=== PATIENT | female | born 1960 | race Hispanic/Latino ===

== ENCOUNTER 2017-04-22 23:07 | Inpatient (IN) | payer MEDICAID ==
[2017-04-22] MEDS ORDERED: ATROVENT IH ONE (23:14)
[2017-04-22] MEDS ORDERED: PROVENTIL IH ONE (23:14)
[2017-04-22] MEDS ORDERED: MAGNESIUM SULFATE 2GM/50ML 2 GM/50 ML BAG IV ONE (23:20)
--- NOTE | 2017-04-22 23:25 | Emergency Department Report ---
HPI - General Chief Complaint: Dyspnea/Respdistress Time Seen by Provider: 04/22/17 23:13 - HPI HPI: This is a 56-year-old female presents to the emergency department by EMS from home and respiratory distress. She was found to have a pulse ox of 77 % on oxygen supplementation via nasal cannula. She was placed on a nonrebreather and it went up into the 80s. EMS was unable to establish an IV and therefore no medications were given. She has a history of COPD and is on 4- 5 L of oxygen at home via nasal cannula. She also has a history of hepatitis C. She says that she has had to be intubated in the past secondary to her COPD and/or respiratory issues. She is a former smoker. No recent travel or sick contacts at home. ED Past Medical Hx - Past Medical History Previous Medical History?: Yes Hx GERD: Yes Hx COPD: Yes Additional medical history: has been intubated beforem - Surgical History Past Surgical History?: No - Social History Smoking Status: Never Smoker Substance Use Type: None - Medications Home Medications: Home Medications Medication Instructions Recorded Confirmed Last Taken Type Ipratropium [Atrovent NEB] 0.5 mg IH Q4HR 30 Days 07/25/16 04/23/17 Unknown Rx ALBUTEROL Inhaler [Proair] 2 puff IH QID PRN 04/23/17 04/23/17 Unknown History Budesoni/Formotero 160-4.5(Nf) 2 puff IH BID 04/23/17 04/23/17 Unknown History [Symbicort 160-4.5 (Nf)] Tizanidine HCl [Zanaflex] 4 mg PO TID PRN 04/23/17 04/23/17 Unknown History Ursodiol (Nf) [Actigall (Nf)] 300 mg PO BID 04/23/17 04/23/17 Unknown History ED Review of Systems ROS: Stated complaint: ELI Other details as noted in HPI Comment: All other systems reviewed and negative Constitutional: denies: chills, fever Eyes: denies: eye pain, eye discharge, vision change ENT: denies: ear pain, throat pain Respiratory: cough, shortness of breath, wheezing Cardiovascular: denies: chest pain, palpitations Gastrointestinal: denies: abdominal pain, nausea, diarrhea Genitourinary: denies: urgency, dysuria, discharge Musculoskeletal: denies: back pain, joint swelling, arthralgia Skin: denies: rash, lesions Neurological: denies: headache, weakness, paresthesias Physical Exam - Physical Exam Vital Signs: Vital Signs 04/22/17 23:08 Pulse Rate 116 H Respiratory 32 H Rate Blood Pressure 151/83 O2 Sat by Pulse 83 L Oximetry Physical Exam: GENERAL: The patient is ill-appearing. HENT: Normocephalic. Atraumatic. Patient has moist mucous membranes. EYES: Extraocular motions are intact. Pupils equal reactive to light bilaterally. NECK: Supple. Trachea is midline. CHEST/LUNGS: There is mild wheezing throughout the chest. There is tachypnea and supraclavicular accessory muscle use. There is conversational dyspnea. There is respiratory distress noted. HEART/CARDIOVASCULAR: Regular. There is mild tachycardia. There is no gallop rub or murmur. ABDOMEN: Abdomen is soft, nontender. Patient has normal bowel sounds. There is no abdominal distention. SKIN: Skin is warm and dry. NEURO: The patient is awake, alert, and oriented. The patient is cooperative. The patient has no focal neurologic deficits. MUSCULOSKELETAL: There is no tenderness or deformity. Radial pulses +2 over 4 bilaterally. Cap refill less than 2 seconds. There is no evidence of acute injury. ED Course Vital Signs 04/22/17 23:08 Pulse Rate 116 H Respiratory 32 H Rate Blood Pressure 151/83 O2 Sat by Pulse 83 L Oximetry - Reevaluation(s) Reevaluation #1: Repeat ABG shows worsening respiratory acidosis with PCO2 of about 92, up from about 70. I spoke to the patient regarding the need for intubation before the patient undergoes CO2 narcosis and/or complete respiratory failure. However at this moment the patient is AAO 3, easily arousable and answers questions appropriately and refusing intubation. 04/23/17 01:15 04/23/17 02:05 As expected, the patient has become more sedated secondary to her CO2 narcosis. She is showing some hypoxia despite being on high O2 Bipap. The patient also eventually appeared to agree to intubation as still felt uncomfortable from her SOB and nodded in agreement to my suggestion / request to intubate and this was witnessed by the charge nurse Bryon and her boyfriend Rome. The patient no longer displays any decision making capacity as well. The patient was intubated without any obvious complication. - ABG Interpretation Ph: 7.312 PCO2: 72 PO2: 154 Bicarbonate: 36 Interpretation: respiratory acidosis - EJ/Peripheral Line Arm L Time Out Performed: Yes Indications: other (20-gauge angiocatheter necessary for CT angiography) Skin Cleansed in Sterile Fashion: Yes Size: 20 Dressing Placed: Tegaderm, tape Patient Tolerated Procedure: well Additional Comments: Ultrasound used. - Intubation Time Out Performed: Yes Sedative: Ketamine Mg Given: 50 Paralytic: Rocuronium Mg Given: 50 Laryngoscope: other (glydescope) ET Tube Size: 7.5 Tube Secured Depth (cm): 22 Tube Secured Location: lips Tube Placement Confirmation: visualized tube passing t, equal breath sounds bilat, confirmation by capnometr Patient Tolerated Procedure: well Intubation Complications: none ED Medical Decision Making - Lab Data Result diagrams: 04/22/17 23:13 04/22/17 23:13 - EKG Data -: EKG Interpreted by Me EKG shows normal: sinus rhythm, axis (borderline right axis deviation), intervals, QRS complexes (Q waves to the septal leads), ST-T waves (T-wave inversions to the high lateral leads) Rate: normal - EKG Data When compared to previous EKG there are: changes noted (new T-wave inversions to the lateral leads) Interpretation: other (sinus rhythm, normal rate, borderline right axis deviation, Q waves to the septal leads, T-wave inversion to the high lateral leads) - Radiology Data Radiology results: image reviewed interpreted by me: Chest x-ray shows some signs of interstitial lung disease, hyperinflation of the diaphragms. No obvious pneumonia. No pleural effusions. - Medical Decision Making 56-year-old female presents with what appears to be an exacerbation of COPD. She came in and some respiratory distress and required a BiPAP. ABG showed respiratory acidosis. She was on the BiPAP for about one hour when a repeat blood gas was done that showed worsening of her respiratory acidosis. At first the patient did not want intubation but she began having CO2 narcosis, became uncomfortable with her breathing and wanted sedation for all of the lab draws and IV placements and eventually agreed to intubation, which was necessary anyways. Her blood gas has improved while on mechanical ventilation and intubation. She has an elevated d-dimer but getting 20-gauge Angiocath placement appropriate for a CT angiography was very difficult. She may have a perfusion only study but a dose of Lovenox was given an internal medicine will decide how they would like to proceed to rule out a pulmonary embolism. She will be admitted to the hospital/ICU for further evaluation and treatment and has been accepted for admission by the hospitalist, Dr. Thayer. - Differential Diagnosis COPD, pneumonia, PE, OH Critical Care Time: Yes Critical care time in (mins) excluding proc time.: 35 Critical care attestation.: If time is entered above; I have spent that time in minutes in the direct care of this critically ill patient, excluding procedure time. Critical care time was spent on this patient during her initial evaluation, multiple re-evaluations , titration of BiPAP and mechanical ventilation, ordering an interpretation of labs and imaging, discussion with the patient and boyfriend. This is not include the time spent for the intubation and placing a peripheral IV. ED Disposition Clinical Impression: Hypoxia, Shortness of breath, COPD exacerbation, Respiratory acidosis Acute respiratory failure Qualifiers: Respiratory failure complication: hypoxia and hypercapnia Qualified Code(s): J96.01 - Acute respiratory failure with hypoxia; J96.02 - Acute respiratory failure with hypercapnia Disposition: -09 OP ADMIT IP TO THIS HOSP Is pt being admited?: Yes Condition: Serious Instructions: Chronic Obstructive Pulmonary Disease (ED) Referrals: PRIMARY CAREMD [Primary Care Provider] - 3-5 Days Time of Disposition: 06:17
[2017-04-22 23:45] LABS: ISTAT Base Excess 11; ISTAT HCO3 36.9; ISTAT PCO2 72.9 (35-45); ISTAT PH 7.312 (7.35-7.45); ISTAT PO2 154 (80-105); ISTAT SO2 99; ISTAT TCO2 39
[2017-04-22 23:49] LABS: Basophils % (Auto) 0.1 % (0.0-1.8); Eosinophils % (Auto) 0.2 % (0.0-4.3); Hematocrit 46.4 % (30.3-42.9); Hemoglobin 14.7 gm/dl (10.1-14.3); Mean Corpuscular HGB Conc 32 % (30-34); Mean Corpuscular Hemoglobin 30 pg (28-32); Mean Corpuscular Volume 95 fl (79-97); Platelet Count 261 K/mm3 (140-440); Red Blood Count 4.89 M/mm3 (3.65-5.03); White Blood Count 16.7 K/mm3 (4.5-11.0)
[2017-04-22 23:54] LABS: Blood Urea Nitrogen 12 mg/dL (7-17); Calcium 9.3 mg/dL (8.4-10.2); Carbon Dioxide 32 mmol/L (22-30); Chloride 99.1 mmol/L (98-107); Glucose 124 mg/dL (65-100); Sodium 145 mmol/L (137-145)
[2017-04-23 00:10] LABS: Anion Gap 19 mmol/L; Potassium 4.7 mmol/L (3.6-5.0)
--- NOTE | 2017-04-23 01:10 | XRay Report ---
FINAL REPORT PROCEDURE: XR CHEST 1V AP TECHNIQUE: Chest radiograph anteroposterior view. CPT 43636 HISTORY: Dyspnea COMPARISON: 07/22/2016 FINDINGS: Heart: Normal. Mediastinum/Vessels: Normal. Lungs/Pleural space: There is advanced COPD. There are fibrotic changes bilaterally. There is pleural thickening at the lung bases. There are no acute infiltrates. There are no pneumothoraces. Bony thorax: No acute osseous abnormality. Life support devices: None. IMPRESSION: There are chronic fibrotic changes. There are no acute infiltrates..
[2017-04-23 01:25] LABS: ISTAT Base Excess 11; ISTAT HCO3 38.6; ISTAT PCO2 91.5 (35-45); ISTAT PH 7.233 (7.35-7.45); ISTAT PO2 74 (80-105); ISTAT SO2 90; ISTAT TCO2 41
[2017-04-23 01:47] LABS: Bacteria,Urine 1+ /HPF (Negative); Bilirubin,Urine NEG (Negative); Blood,Urine NEG (Negative); Ketones,Urine 20 mg/dL (Negative); Leukocyte Esterase,Urine SM (Negative); Mucus,Urine FEW /HPF; Nitrite,Urine NEG (Negative); Urobilinogen,Urine < 2.0 mg/dL (<2.0)
[2017-04-23] MEDS ORDERED: KETALAR IV ONE ×3 (01:54→06:00)
[2017-04-23] MEDS ORDERED: ZEMURON IV ONE ×2 (01:54→02:01)
[2017-04-23] MEDS ORDERED: KETALAR ONE (02:01)
[2017-04-23] MEDS ORDERED: VERSED IV ONE (02:01)
[2017-04-23] MEDS ORDERED: ARTIFICIAL TEARS OPHTH OINT OU PRN ×2 (02:08→03:00)
[2017-04-23] MEDS ORDERED: VASELINE LIP THERAPY TP PRN ×2 (02:08→03:00)
[2017-04-23] MEDS ORDERED: NACL 0.9% 500 ML IV SCH (03:00)
[2017-04-23] MEDS: MIDAZOLAM 100 MG in NACL 0.9% 80 ML IV SCH (03:15)
[2017-04-23 04:11] LABS: ISTAT Base Excess 12; ISTAT HCO3 35.9; ISTAT PCO2 53.2 (35-45); ISTAT PH 7.437 (7.35-7.45); ISTAT PO2 97 (80-105); ISTAT SO2 98; ISTAT TCO2 38
[2017-04-23] MEDS: fentaNYL DRIP Premix 2,000 MCG/100 ML BAG IV SCH ×2 (04:37→19:26)
[2017-04-23] MEDS ORDERED: ROCEPHIN/NS 1 GM/50 ML 1 GM/50 ML BAG IV ONE (05:24)
[2017-04-23] MEDS ORDERED: LOVENOX SUB-Q ONE (05:33)
--- NOTE | 2017-04-23 05:59 | History and Physical Report ---
History of Present Illness Date of examination: 04/23/17 History of present illness: 56-year-old woman with a history of COPD, hepatitis C approximately emergency room for shortness of breath. She was found to be in respiratory distress. Patient had saturation of 77%. She was started on BiPAP, her carbon dioxide increased and she became sedated. The patient was subsequently intubated. CAT scan of the chest was was not done because of poor IV access, her d-dimer was elevated. Patient is sedated, unable to obtain review of systems. Old chart was reviewed PAST MEDICAL HISTORY:COPD, hepatitis C PAST SURGICAL HISTORY: None SOCIAL HISTORY: Previous tobacco, crack, no alcohol, current usage unknown FAMILY HISTORY: Hypertension Medications and Allergies Allergies Allergy/AdvReac Type Severity Reaction Status Date / Time No Known Allergies Allergy Verified 07/22/16 22:21 Home Medications Medication Instructions Recorded Confirmed Last Taken Type Ipratropium [Atrovent NEB] 0.5 mg IH Q4HR 30 Days 07/25/16 04/23/17 Unknown Rx ALBUTEROL Inhaler [ProAir HFA 2 puff IH QID PRN #1 unit 04/27/17 04/23/17 Unknown Rx Inhaler] Acetaminophen [Acetaminophen TAB] 325 mg PO Q4H PRN #30 tablet 04/27/17 Unknown Rx Arformoterol Nebu [Brovana Nebu] 15 mcg IH Q12HRT #30 day 04/27/17 Unknown Rx Azithromycin [Zithromax Z-KAYLA] 1 dose PO DAILY #1 pack 04/27/17 Unknown Rx Budesoni/Formotero 160-4.5(Nf) 2 puff IH BID #30 04/27/17 04/23/17 Unknown Rx [Symbicort 160-4.5 (Nf)] Famotidine [Pepcid] 20 mg PO BID #60 tablet 04/27/17 Unknown Rx Ursodiol (Nf) [Actigall (Nf)] 300 mg PO BID #30 day 04/27/17 04/23/17 Unknown Rx methylPREDNISolone [Medrol Dose 1 dose PO DAILY #1 pack 04/27/17 Unknown Rx Kayla] Active Meds: Active Medications Hydrophilic Ointment (Vaseline Lip Therapy) 1 applic TP Q2HR PRN PRN Reason: Dry Lips Hydrophilic Ointment (Vaseline Lip Therapy) 1 applic TP Q2HR PRN PRN Reason: Dry Lips Fentanyl Citrate (Fentanyl Drip Premix) 2,000 mcg in 100 mls @ 2.495 mls/hr IV TITR MELISSA; 1 MCG/KG/HR PRN Reason: Protocol Last Titration: 04/23/17 05:00 Dose: 2 mcg/kg/hr, 4.99 mls/hr Midazolam HCl 100 mg/ Sodium (Chloride) 100 mls @ 2 mls/hr IV TITR MELISSA; 2 MG/HR PRN Reason: Protocol Last Titration: 04/23/17 04:45 Dose: 4 mg/hr, 4 mls/hr Ketamine HCl (Ketalar) 100 mg IV ONCE ONE Stop: 04/23/17 06:01 Multi-Ingred Cream/Lotion/Oil/Oint (Artificial Tears Ophth Oint) 1 applic OU Q4HR PRN PRN Reason: Dry Eye(s) Multi-Ingred Cream/Lotion/Oil/Oint (Artificial Tears Ophth Oint) 1 applic OU Q4HR PRN PRN Reason: Dry Eye(s) Sodium Chloride (Nacl 0.9% 500 Ml) 1 ml IV DIRECT MELISSA Exam - Physical Exam Narrative exam: Gen. appearance: Patient lying in bed in no acute distress, intubated HEENT: Normocephalic/atraumatic, pupils equal round reactive to light, unable to do extraocular movement, no scleral icterus, no JVD or thyromegaly or nodule , neck is supple, mucous membrane moist, unable to examine oral cavity Heart: S1-S2, regular rate and rhythm Lungs: Wheezing anteriorly bilateral breathing comfortable Abdomen: Positive bowel sounds, nontender, nondistended, no organomegaly Extremities: No edema, cyanosis, clubbing Neuro:: Patient intubated, sedated Skin: No rash, nodules, warm dry - Constitutional Vitals: Temp Pulse Resp BP Pulse Ox 96 H 18 118/81 98 04/23/17 05:00 04/23/17 05:00 04/23/17 05:00 04/23/17 05:00 Results - Labs CBC & Chem 7: 04/26/17 06:48 04/26/17 06:48 Labs: Abnormal lab results 04/22/17 04/22/17 04/22/17 Range/Units 23:13 23:13 23:13 WBC 16.7 H (4.5-11.0) K/mm3 Hgb 14.7 H (10.1-14.3) gm/dl Hct 46.4 H (30.3-42.9) % Lymph % (Auto) 6.5 L (13.4-35.0) % [place] % (Auto) 9.9 H (0.0-7.3) % Lymph # 1.1 L (1.2-5.4) K/mm3 [place] # 1.6 H (0.0-0.8) K/mm3 Seg Neutrophils % 83.3 H (40.0-70.0) % Seg Neutrophils # 13.9 H (1.8-7.7) K/mm3 D-Dimer 1379.86 H (0-234) ng/mlDDU POC ABG pH (7.35-7.45) POC ABG pCO2 (35-45) POC ABG pO2 (80-105) Carbon Dioxide 32 H (22-30) mmol/L Creatinine 0.5 L (0.7-1.2) mg/dL Glucose 124 H (65-100) mg/dL NT-Pro-B Natriuret Pep (0-900) pg/mL Urine WBC (Auto) (0.0-6.0) /HPF 04/22/17 04/22/17 04/23/17 Range/Units 23:14 23:44 01:10 WBC (4.5-11.0) K/mm3 Hgb (10.1-14.3) gm/dl Hct (30.3-42.9) % Lymph % (Auto) (13.4-35.0) % [place] % (Auto) (0.0-7.3) % Lymph # (1.2-5.4) K/mm3 [place] # (0.0-0.8) K/mm3 Seg Neutrophils % (40.0-70.0) % Seg Neutrophils # (1.8-7.7) K/mm3 D-Dimer (0-234) ng/mlDDU POC ABG pH 7.312 L (7.35-7.45) POC ABG pCO2 72.9 H (35-45) POC ABG pO2 154 H (80-105) Carbon Dioxide (22-30) mmol/L Creatinine (0.7-1.2) mg/dL Glucose (65-100) mg/dL NT-Pro-B Natriuret Pep 2918 H (0-900) pg/mL Urine WBC (Auto) 55.0 H (0.0-6.0) /HPF 04/23/17 04/23/17 Range/Units 01:12 04:10 WBC (4.5-11.0) K/mm3 Hgb (10.1-14.3) gm/dl Hct (30.3-42.9) % Lymph % (Auto) (13.4-35.0) % [place] % (Auto) (0.0-7.3) % Lymph # (1.2-5.4) K/mm3 [place] # (0.0-0.8) K/mm3 Seg Neutrophils % (40.0-70.0) % Seg Neutrophils # (1.8-7.7) K/mm3 D-Dimer (0-234) ng/mlDDU POC ABG pH 7.233 L (7.35-7.45) POC ABG pCO2 91.5 H 53.2 H (35-45) POC ABG pO2 74 L (80-105) Carbon Dioxide (22-30) mmol/L Creatinine (0.7-1.2) mg/dL Glucose (65-100) mg/dL NT-Pro-B Natriuret Pep (0-900) pg/mL Urine WBC (Auto) (0.0-6.0) /HPF - Imaging and Cardiology EKG: image reviewed Chest x-ray: image reviewed Assessment and Plan Assessment Acute Respiratory failure, hypoxic COPD exacerbation, acute Elevated d-dimer, rule out pulmonary emboli UTI Hepatitis C Plan Continue IV sedation, start high dose steroids, nebulizer treatment a Consult critical care, status post a full dose of Lovenox. Obtain PICC line placement for CAT scan of the chest If CT negative , please start prophylactic Lovenox dose Check cardiac enzymes, start IV Levaquin, iv fluid
[2017-04-23] MEDS ORDERED: ZOFRAN IV PRN (06:01)
[2017-04-23] MEDS ORDERED: TYLENOL PR PRN (06:01)
[2017-04-23] MEDS ORDERED: TYLENOL PO PRN (06:01)
[2017-04-23 07:14] LABS: Creatine Kinase MB 5.9 ng/mL (0.0-4.0)
[2017-04-23 07:16] LABS: Creatine Kinase 83 units/L (30-135)
--- NOTE | 2017-04-23 07:47 | Progress Note ---
<ANTON CROUCH - Last Filed: 04/23/17 15:00> Assessment and Plan Assessment and plan: Patient is a 56-year-old woman with a history of COPD, hepatitis C presents to the emergency room for shortness of breath. She was found to be in respiratory distress. Patient had saturation of 77%. She was started on BiPAP, her carbon dioxide increased and she became sedated. The patient was subsequently intubated. Acute respiratory failure with hypoxia Patient currently intubated. No acute respiratory distress noted. Aggressive Nebulizers/Inhalers ABG when necessary Oxygen supplement Supportive care Sepsis secondary UTI Blood cultures collected prior to antibiotic and culture. Follow blood cultures. Initiated empiric treatment IV Levaquin IV fluid hydration Supportive care Acute exacerbation of chronic obstructive pulmonary disease (COPD), Continue on Duoneb every 6 hours Wean IV steroid Solumedrol 125mg every 6 hours Continue on empiric treatment of IV Levaquin. Oxygen as necessary Urinary Tract Infection IV fluid hydration Initiated empiric treatment IV Levaquin Supportive care Hepatitis C Stable follow up with GI as outpatient Elevated D-fabián CTA no evidence of PE VL LE Doppler ordered to rule out LE DVT DVT/Prophylaxis Lovenox History Interval history: Patient intubated, no overnight issue Hospitalist Physical - Constitutional Vitals: Temp Pulse Resp BP Pulse Ox 104 H 18 117/82 98 04/23/17 07:37 04/23/17 06:45 04/23/17 07:37 04/23/17 07:37 General appearance: Present: no acute distress, other (intubated ) - EENT Eyes: Present: PERRL ENT: hearing intact - Neck Neck: Present: supple - Respiratory Respiratory effort: normal Respiratory: bilateral: wheezing - Cardiovascular Rhythm: regular Heart Sounds: Present: S1 & S2 - Extremities Extremities: no ischemia Peripheral Pulses: within normal limits - Abdominal General gastrointestinal: soft, non-tender - Integumentary Integumentary: Present: clear, warm, dry - Psychiatric Psychiatric: appropriate mood/affect - Neurologic Neurologic: CNII-XII intact - Allied Health Allied health notes reviewed: nursing Results - Labs CBC & Chem 7: 04/22/17 23:13 04/22/17 23:13 Labs: Laboratory Last Values WBC 16.7 K/mm3 (4.5-11.0) H 04/22/17 23:13 RBC 4.89 M/mm3 (3.65-5.03) 04/22/17 23:13 Hgb 14.7 gm/dl (10.1-14.3) H 04/22/17 23:13 Hct 46.4 % (30.3-42.9) H 04/22/17 23:13 MCV 95 fl (79-97) 04/22/17 23:13 MCH 30 pg (28-32) 04/22/17 23:13 MCHC 32 % (30-34) 04/22/17 23:13 RDW 15.0 % (13.2-15.2) 04/22/17 23:13 Plt Count 261 K/mm3 (140-440) 04/22/17 23:13 Lymph % (Auto) 6.5 % (13.4-35.0) L 04/22/17 23:13 [place] % (Auto) 9.9 % (0.0-7.3) H 04/22/17 23:13 Eos % (Auto) 0.2 % (0.0-4.3) 04/22/17 23:13 Baso % (Auto) 0.1 % (0.0-1.8) 04/22/17 23:13 Lymph # 1.1 K/mm3 (1.2-5.4) L 04/22/17 23:13 [place] # 1.6 K/mm3 (0.0-0.8) H 04/22/17 23:13 Eos # 0.0 K/mm3 (0.0-0.4) 04/22/17 23:13 Baso # 0.0 K/mm3 (0.0-0.1) 04/22/17 23:13 Seg Neutrophils % 83.3 % (40.0-70.0) H 04/22/17 23:13 Seg Neutrophils # 13.9 K/mm3 (1.8-7.7) H 04/22/17 23:13 D-Dimer 1379.86 ng/mlDDU (0-234) H 04/22/17 23:13 POC ABG pH 7.437 (7.35-7.45) 04/23/17 04:10 POC ABG pCO2 53.2 (35-45) H 04/23/17 04:10 POC ABG pO2 97 (80-105) 04/23/17 04:10 POC ABG HCO3 35.9 04/23/17 04:10 POC ABG Total CO2 38 04/23/17 04:10 POC ABG O2 Sat 98 04/23/17 04:10 POC ABG Base Excess 12 04/23/17 04:10 FiO2 50 % 04/23/17 04:10 Sodium 145 mmol/L (137-145) 04/22/17 23:13 Potassium 4.7 mmol/L (3.6-5.0) 04/22/17 23:13 Chloride 99.1 mmol/L (98-107) 04/22/17 23:13 Carbon Dioxide 32 mmol/L (22-30) H 04/22/17 23:13 Anion Gap 19 mmol/L 04/22/17 23:13 BUN 12 mg/dL (7-17) 04/22/17 23:13 Creatinine 0.5 mg/dL (0.7-1.2) L 04/22/17 23:13 Estimated GFR > 60 ml/min 04/22/17 23:13 BUN/Creatinine Ratio 24.00 % 04/22/17 23:13 Glucose 124 mg/dL (65-100) H 04/22/17 23:13 Calcium 9.3 mg/dL (8.4-10.2) 04/22/17 23:13 Magnesium 1.90 mg/dL (1.7-2.3) 04/22/17 23:13 Total Creatine Kinase 83 units/L (30-135) 04/23/17 06:20 CK-MB (CK-2) 5.9 ng/mL (0.0-4.0) H 04/23/17 06:20 CK-MB (CK-2) Rel Index 7.1 (0-4) H 04/23/17 06:20 Troponin T < 0.010 ng/mL (0.00-0.029) 04/23/17 06:20 NT-Pro-B Natriuret Pep 2918 pg/mL (0-900) H 04/22/17 23:14 Urine Color Yellow (Yellow) 04/23/17 01:10 Urine Turbidity Clear (Clear) 04/23/17 01:10 Urine pH 5.0 (5.0-7.0) 04/23/17 01:10 Ur Specific [place] 1.023 (1.003-1.030) 04/23/17 01:10 Urine Protein 100 mg/dl mg/dL (Negative) 04/23/17 01:10 Urine Glucose (UA) Neg mg/dL (Negative) 04/23/17 01:10 Urine Ketones 20 mg/dL (Negative) 04/23/17 01:10 Urine Blood Neg (Negative) 04/23/17 01:10 Urine Nitrite Neg (Negative) 04/23/17 01:10 Urine Bilirubin Neg (Negative) 04/23/17 01:10 Urine Urobilinogen < 2.0 mg/dL (<2.0) 04/23/17 01:10 Ur Leukocyte Esterase Sm (Negative) 04/23/17 01:10 Urine WBC (Auto) 55.0 /HPF (0.0-6.0) H 04/23/17 01:10 Urine RBC (Auto) 8.0 /HPF (0.0-6.0) 04/23/17 01:10 U Epithel Cells (Auto) 1.0 /HPF (0-13.0) 04/23/17 01:10 Urine Bacteria (Auto) 1+ /HPF (Negative) 04/23/17 01:10 Amorphous Crystals 1+ 04/23/17 01:10 Hyaline Casts 17 /LPF 04/23/17 01:10 Urine Mucus Few /HPF 04/23/17 01:10 <KEATON BASILIO - Last Filed: 04/23/17 19:39> Assessment and Plan Assessment and plan: I saw and evaluated the patient. I agree with the findings and the plan of care as documented in the Nurse Practitioner's~note, with the following corrections and additions. Hospitalist Physical - Constitutional Vitals: Temp Pulse Resp BP Pulse Ox 98.7 F 98 H 18 114/83 96 04/23/17 18:00 04/23/17 18:00 04/23/17 18:00 04/23/17 18:00 04/23/17 18:00 Results - Labs CBC & Chem 7: 04/22/17 23:13 04/22/17 23:13 Labs: Laboratory Last Values WBC 16.7 K/mm3 (4.5-11.0) H 04/22/17 23:13 RBC 4.89 M/mm3 (3.65-5.03) 04/22/17 23:13 Hgb 14.7 gm/dl (10.1-14.3) H 04/22/17 23:13 Hct 46.4 % (30.3-42.9) H 04/22/17 23:13 MCV 95 fl (79-97) 04/22/17 23:13 MCH 30 pg (28-32) 04/22/17 23:13 MCHC 32 % (30-34) 04/22/17 23:13 RDW 15.0 % (13.2-15.2) 04/22/17 23:13 Plt Count 261 K/mm3 (140-440) 04/22/17 23:13 Lymph % (Auto) 6.5 % (13.4-35.0) L 04/22/17 23:13 [place] % (Auto) 9.9 % (0.0-7.3) H 04/22/17 23:13 Eos % (Auto) 0.2 % (0.0-4.3) 04/22/17 23:13 Baso % (Auto) 0.1 % (0.0-1.8) 04/22/17 23:13 Lymph # 1.1 K/mm3 (1.2-5.4) L 04/22/17 23:13 [place] # 1.6 K/mm3 (0.0-0.8) H 04/22/17 23:13 Eos # 0.0 K/mm3 (0.0-0.4) 04/22/17 23:13 Baso # 0.0 K/mm3 (0.0-0.1) 04/22/17 23:13 Seg Neutrophils % 83.3 % (40.0-70.0) H 04/22/17 23:13 Seg Neutrophils # 13.9 K/mm3 (1.8-7.7) H 04/22/17 23:13 D-Dimer 1379.86 ng/mlDDU (0-234) H 04/22/17 23:13 POC ABG pH 7.437 (7.35-7.45) 04/23/17 04:10 POC ABG pCO2 53.2 (35-45) H 04/23/17 04:10 POC ABG pO2 97 (80-105) 04/23/17 04:10 POC ABG HCO3 35.9 04/23/17 04:10 POC ABG Total CO2 38 04/23/17 04:10 POC ABG O2 Sat 98 04/23/17 04:10 POC ABG Base Excess 12 04/23/17 04:10 FiO2 50 % 04/23/17 04:10 Sodium 145 mmol/L (137-145) 04/22/17 23:13 Potassium 4.7 mmol/L (3.6-5.0) 04/22/17 23:13 Chloride 99.1 mmol/L (98-107) 04/22/17 23:13 Carbon Dioxide 32 mmol/L (22-30) H 04/22/17 23:13 Anion Gap 19 mmol/L 04/22/17 23:13 BUN 12 mg/dL (7-17) 04/22/17 23:13 Creatinine 0.5 mg/dL (0.7-1.2) L 04/22/17 23:13 Estimated GFR > 60 ml/min 04/22/17 23:13 BUN/Creatinine Ratio 24.00 % 04/22/17 23:13 Glucose 124 mg/dL (65-100) H 04/22/17 23:13 Calcium 9.3 mg/dL (8.4-10.2) 04/22/17 23:13 Magnesium 1.90 mg/dL (1.7-2.3) 04/22/17 23:13 Total Creatine Kinase 46 units/L (30-135) 04/23/17 12:37 CK-MB (CK-2) 3.9 ng/mL (0.0-4.0) 04/23/17 12:37 CK-MB (CK-2) Rel Index 8.4 (0-4) H 04/23/17 12:37 Troponin T < 0.010 ng/mL (0.00-0.029) 04/23/17 12:37 NT-Pro-B Natriuret Pep 2918 pg/mL (0-900) H 04/22/17 23:14 Urine Color Yellow (Yellow) 04/23/17 01:10 Urine Turbidity Clear (Clear) 04/23/17 01:10 Urine pH 5.0 (5.0-7.0) 04/23/17 01:10 Ur Specific [place] 1.023 (1.003-1.030) 04/23/17 01:10 Urine Protein 100 mg/dl mg/dL (Negative) 04/23/17 01:10 Urine Glucose (UA) Neg mg/dL (Negative) 04/23/17 01:10 Urine Ketones 20 mg/dL (Negative) 04/23/17 01:10 Urine Blood Neg (Negative) 04/23/17 01:10 Urine Nitrite Neg (Negative) 04/23/17 01:10 Urine Bilirubin Neg (Negative) 04/23/17 01:10 Urine Urobilinogen < 2.0 mg/dL (<2.0) 04/23/17 01:10 Ur Leukocyte Esterase Sm (Negative) 04/23/17 01:10 Urine WBC (Auto) 55.0 /HPF (0.0-6.0) H 04/23/17 01:10 Urine RBC (Auto) 8.0 /HPF (0.0-6.0) 04/23/17 01:10 U Epithel Cells (Auto) 1.0 /HPF (0-13.0) 04/23/17 01:10 Urine Bacteria (Auto) 1+ /HPF (Negative) 04/23/17 01:10 Amorphous Crystals 1+ 04/23/17 01:10 Hyaline Casts 17 /LPF 04/23/17 01:10 Urine Mucus Few /HPF 04/23/17 01:10
--- NOTE | 2017-04-23 08:18 | XRay Report ---
PORTABLE CHEST INDICATION: ET tube placement. COMPARISON: Yesterday. FINDINGS: Portable, frontal chest radiograph, 2:17 AM, 04/23/2017 demonstrates new endotracheal tube tip approximately 4 cm above the danny. Stable cardiomediastinal silhouette with extensive emphysematous changes/probable large bullae inferiorly while crowded/prominent bronchovascular markings noted in the upper to mid lung zones. Bilateral costophrenic angle blunting. EKG leads. Intact bones. CONCLUSION: Satisfactory interval intubation and stable extensive emphysematous changes inferiorly, as described. Thank you for the opportunity to participate in this patient's care.
[2017-04-23] MEDS ORDERED: LOVENOX SUB-Q SCH (10:00)
--- NOTE | 2017-04-23 11:11 | Consultation ---
History of Present Illness Consult date: 04/23/17 Requesting physician: JEISON TYSON Reason for consult: other (Acute on Chronic Hypercapnic Hypoxemic Respiratory Failure; Acute COPD exacerbation) History of present illness: PULMONARY/CCM CONSULT NOTE (Full dictation # [id number]) Please see dictated notes for full details Medications and Allergies Allergies Allergy/AdvReac Type Severity Reaction Status Date / Time No Known Allergies Allergy Verified 07/22/16 22:21 Home Medications Medication Instructions Recorded Confirmed Last Taken Type Ipratropium [Atrovent NEB] 0.5 mg IH Q4HR 30 Days 07/25/16 04/23/17 Unknown Rx ALBUTEROL Inhaler [Proair] 2 puff IH QID PRN 04/23/17 04/23/17 Unknown History Budesoni/Formotero 160-4.5(Nf) 2 puff IH BID 04/23/17 04/23/17 Unknown History [Symbicort 160-4.5 (Nf)] Tizanidine HCl [Zanaflex] 4 mg PO TID PRN 04/23/17 04/23/17 Unknown History Ursodiol (Nf) [Actigall (Nf)] 300 mg PO BID 04/23/17 04/23/17 Unknown History Active Meds: Active Medications Acetaminophen (Tylenol) 650 mg PO Q4H PRN PRN Reason: Pain MILD(1-3)/Fever >100.5/HILL Acetaminophen (Tylenol) 650 mg AR Q4H PRN PRN Reason: Pain MILD(1-3)/Fever >100.5/HILL Hydrophilic Ointment (Vaseline Lip Therapy) 1 applic TP Q2HR PRN PRN Reason: Dry Lips Fentanyl Citrate (Fentanyl Drip Premix) 2,000 mcg in 100 mls @ 2.495 mls/hr IV TITR MELISSA; 1 MCG/KG/HR PRN Reason: Protocol Last Titration: 04/23/17 05:00 Dose: 2 mcg/kg/hr, 4.99 mls/hr Midazolam HCl 100 mg/ Sodium (Chloride) 100 mls @ 2 mls/hr IV TITR MELISSA; 2 MG/HR PRN Reason: Protocol Last Titration: 04/23/17 10:32 Dose: 3 mg/hr, 3 mls/hr Sodium Chloride (Nacl 0.9% 1000 Ml) 1,000 mls @ 75 mls/hr IV DIRECT MELISSA Levofloxacin/Dextrose (Levaquin 500mg/100ml) 500 mg in 100 mls @ 100 mls/hr IV Q24HR MELISSA PRN Reason: Protocol Methylprednisolone Sodium Succinate (Solu-Medrol) 125 mg IV Q6H [facility] Multi-Ingred Cream/Lotion/Oil/Oint (Artificial Tears Ophth Oint) 1 applic OU Q4HR PRN PRN Reason: Dry Eye(s) Ondansetron HCl (Zofran) 4 mg IV Q8H PRN PRN Reason: N/V unrelieved by Reglan Sodium Chloride (Nacl 0.9% 500 Ml) 1 ml IV DIRECT [facility] Physical Examination Vital signs: Vital Signs Pulse Resp Pulse Ox 110 H 18 82 L 04/22/17 23:06 04/22/17 23:06 04/22/17 23:06 Results - Laboratory Findings CBC and BMP: 04/22/17 23:13 04/22/17 23:13 ABG POC ABG pH 7.437 (7.35-7.45) 04/23/17 04:10 POC ABG pCO2 53.2 (35-45) H 04/23/17 04:10 POC ABG pO2 97 (80-105) 04/23/17 04:10 POC ABG HCO3 35.9 04/23/17 04:10 POC ABG Total CO2 38 04/23/17 04:10 POC ABG O2 Sat 98 04/23/17 04:10 PT/INR, D-dimer D-Dimer 1379.86 ng/mlDDU (0-234) H 04/22/17 23:13 Abnormal lab findings: Abnormal Labs 04/23/17 06:20 CK-MB (CK-2) 5.9 H CK-MB (CK-2) Rel Index 7.1 H
[2017-04-23] MEDS: LEVAQUIN 500MG/100ML 500 MG/100 ML BAG IV SCH (12:13)
[2017-04-23 13:20] LABS: Creatine Kinase MB 3.9 ng/mL (0.0-4.0)
[2017-04-23 13:22] LABS: Creatine Kinase 46 units/L (30-135)
--- NOTE | 2017-04-23 13:56 | Cat Scan Report ---
CTA CHEST: History: Shortness of breath, evaluate for pulmonary embolus. Technique: Helical CT following IV contrast. Pulmonary embolus protocol. Sagittal and coronal reformatted images. Rotational MIP images. Findings: An endotracheal tube is in place. Contrast bolus is satisfactory. No pulmonary embolus is identified. There are severe emphysematous changes bilaterally. The lower lung zones are most affected. No obvious mass, infiltrate, pleural effusion or pneumothorax. Linear scarring in both upper lobes are noted. The thyroid gland, tracheobronchial tree, esophagus, heart, pericardium, mediastinal vessels, and bony thorax are unremarkable. Limited images of the upper abdomen demonstrate an 2.8 x 1.8 cm stone in the left renal pelvis. There is advanced left renal atrophy and mild left hydronephrosis. These findings are partially imaged. Impression: No pulmonary embolus is identified. Severe emphysema. Large left renal pelvis stone with mild left hydronephrosis. See above.
[2017-04-23] MEDS: NACL 0.9% 1000 ML 1,000 ML IV SCH (16:07)
[2017-04-23] MEDS ORDERED: PEPCID PO SCH (21:00)
[2017-04-23 22:25] LABS: C-Reactive Protein 5.1 mg/dL (0.00-1.30); Phosphorous 3.6 mg/dL (2.5-4.5)
--- NOTE | 2017-04-24 00:12 | XRay Report ---
FINAL REPORT EXAM: XR ABDOMEN 1V AP HISTORY: Confirm placement of Dobhoff tube COMPARISON: None available. FINDINGS: AP view of the upper abdomen obtained. Distal tip of feeding tube projects over the proximal to mid stomach. This could be advanced another 15 centimeters to be within the proximal duodenum. IMPRESSION: Distal tip of feeding tube projects over the proximal to mid stomach.
--- NOTE | 2017-04-24 03:25 | XRay Report ---
FINAL REPORT EXAM: XR ABDOMEN 1V AP HISTORY: Dobhoff readjusted COMPARISON: Plain films of the abdomen from yesterday. FINDINGS: AP view of the upper abdomen obtained. Distal tip of feeding tube is unchanged projecting over the proximal to mid stomach. There is radiopaque material within renal pelves bilaterally which may relate to IV contrast from CT enhanced study. Staghorn calculi could have a similar appearance. IMPRESSION: Distal tip of feeding tube is unchanged projecting over the proximal to mid stomach. Radiopaque structures within the bilateral renal pelves which could reflect staghorn calculi or contrast from CT enhanced study.
[2017-04-24 05:19] LABS: Basophils % (Auto) 0.6 % (0.0-1.8); Eosinophils % (Auto) 0.1 % (0.0-4.3); Hematocrit 42.6 % (30.3-42.9); Hemoglobin 14.1 gm/dl (10.1-14.3); Mean Corpuscular HGB Conc 33 % (30-34); Mean Corpuscular Hemoglobin 31 pg (28-32); Mean Corpuscular Volume 93 fl (79-97); Platelet Count 224 K/mm3 (140-440); Red Cell Distribution Width 15.4 % (13.2-15.2)
[2017-04-24] MEDS: NACL 0.9% 1000 ML 1,000 ML IV SCH ×2 (05:33→16:25)
[2017-04-24 05:44] LABS: ISTAT Base Excess 11; ISTAT HCO3 34.8; ISTAT PCO2 45.5 (35-45); ISTAT PH 7.491 (7.35-7.45); ISTAT PO2 65 (80-105); ISTAT SO2 94; ISTAT TCO2 36
[2017-04-24] MEDS: MIDAZOLAM 100 MG in NACL 0.9% 80 ML IV SCH (06:50)
--- NOTE | 2017-04-24 07:50 | Progress Note ---
<ANTON CROUCH - Last Filed: 04/24/17 12:23> Assessment and Plan Assessment and plan: Patient is a 56-year-old woman with a history of COPD, hepatitis C presents to the emergency room for shortness of breath. She was found to be in respiratory distress. Patient had saturation of 77%. She was started on BiPAP, her carbon dioxide increased and she became sedated. The patient was subsequently intubated. Acute respiratory failure with hypoxia Patient currently intubated and sedated. No acute respiratory distress noted. Aggressive Nebulizers/Inhalers ABG when necessary Oxygen supplement Supportive care Sepsis secondary UTI Blood cultures collected prior to antibiotic and culture. Follow blood cultures. Initiated empiric treatment IV Levaquin IV fluid hydration Supportive care Hydronephrosis CTA showed an 2.8x1.8cm stone in the left reneal pelvis Urology consulted Acute exacerbation of chronic obstructive pulmonary disease (COPD), Continue on Duoneb every 6 hours Wean IV steroid Solumedrol 125mg every 6 hours Continue on empiric treatment of IV Levaquin. Oxygen as necessary Urinary Tract Infection IV fluid hydration Initiated empiric treatment IV Levaquin Supportive care Hepatitis C Stable follow up with GI as outpatient Elevated D-fabián CTA no evidence of PE VL LE Doppler no evidence of DVT/SVT DVT/Prophylaxis Lovenox History Interval history: Patient intubated and sedated, no overnight issue Hospitalist Physical - Constitutional Vitals: Temp Pulse Resp BP Pulse Ox 98.2 F 77 18 141/76 99 04/24/17 03:39 04/24/17 06:40 04/24/17 06:40 04/24/17 06:40 04/24/17 06:40 General appearance: Present: no acute distress, other (intubated and sedated ) - EENT Eyes: Present: PERRL ENT: hearing intact - Neck Neck: Present: supple, rigidity - Respiratory Respiratory effort: normal Respiratory: bilateral: CTA - Cardiovascular Heart rate: 66 Rhythm: regular Heart Sounds: Present: S1 & S2 - Extremities Extremities: no ischemia Peripheral Pulses: within normal limits - Abdominal General gastrointestinal: soft, non-tender - Integumentary Integumentary: Present: clear, warm, dry - Psychiatric Psychiatric: appropriate mood/affect - Neurologic Neurologic: CNII-XII intact - Allied Health Allied health notes reviewed: nursing Results - Labs CBC & Chem 7: 04/24/17 05:01 04/24/17 06:53 Labs: Laboratory Last Values WBC 11.0 K/mm3 (4.5-11.0) 04/24/17 05:01 RBC 4.60 M/mm3 (3.65-5.03) 04/24/17 05:01 Hgb 14.1 gm/dl (10.1-14.3) 04/24/17 05:01 Hct 42.6 % (30.3-42.9) 04/24/17 05:01 MCV 93 fl (79-97) 04/24/17 05:01 MCH 31 pg (28-32) 04/24/17 05:01 MCHC 33 % (30-34) 04/24/17 05:01 RDW 15.4 % (13.2-15.2) H 04/24/17 05:01 Plt Count 224 K/mm3 (140-440) 04/24/17 05:01 Lymph % (Auto) 7.4 % (13.4-35.0) L 04/24/17 05:01 [place] % (Auto) 10.2 % (0.0-7.3) H 04/24/17 05:01 Eos % (Auto) 0.1 % (0.0-4.3) 04/24/17 05:01 Baso % (Auto) 0.6 % (0.0-1.8) 04/24/17 05:01 Lymph # 0.8 K/mm3 (1.2-5.4) L 04/24/17 05:01 [place] # 1.1 K/mm3 (0.0-0.8) H 04/24/17 05:01 Eos # 0.0 K/mm3 (0.0-0.4) 04/24/17 05:01 Baso # 0.1 K/mm3 (0.0-0.1) 04/24/17 05:01 Seg Neutrophils % 81.7 % (40.0-70.0) H 04/24/17 05:01 Seg Neutrophils # 9.0 K/mm3 (1.8-7.7) H 04/24/17 05:01 D-Dimer 1379.86 ng/mlDDU (0-234) H 04/22/17 23:13 POC ABG pH 7.491 (7.35-7.45) H 04/24/17 05:37 POC ABG pCO2 45.5 (35-45) H 04/24/17 05:37 POC ABG pO2 65 (80-105) L 04/24/17 05:37 POC ABG HCO3 34.8 04/24/17 05:37 POC ABG Total CO2 36 04/24/17 05:37 POC ABG O2 Sat 94 04/24/17 05:37 POC ABG Base Excess 11 04/24/17 05:37 FiO2 40 % 04/24/17 05:37 Sodium 145 mmol/L (137-145) 04/22/17 23:13 Potassium 4.7 mmol/L (3.6-5.0) 04/22/17 23:13 Chloride 99.1 mmol/L (98-107) 04/22/17 23:13 Carbon Dioxide 32 mmol/L (22-30) H 04/22/17 23:13 Anion Gap 19 mmol/L 04/22/17 23:13 BUN 12 mg/dL (7-17) 04/22/17 23:13 Creatinine 0.5 mg/dL (0.7-1.2) L 04/22/17 23:13 Estimated GFR > 60 ml/min 04/22/17 23:13 BUN/Creatinine Ratio 24.00 % 04/22/17 23:13 Glucose 124 mg/dL (65-100) H 04/22/17 23:13 Lactic Acid 1.40 mmol/L (0.7-2.0) 04/23/17 21:42 Calcium 9.3 mg/dL (8.4-10.2) 04/22/17 23:13 Phosphorus 3.60 mg/dL (2.5-4.5) 04/23/17 21:42 Magnesium 1.90 mg/dL (1.7-2.3) 04/22/17 23:13 Total Creatine Kinase 46 units/L (30-135) 04/23/17 12:37 CK-MB (CK-2) 3.9 ng/mL (0.0-4.0) 04/23/17 12:37 CK-MB (CK-2) Rel Index 8.4 (0-4) H 04/23/17 12:37 Troponin T < 0.010 ng/mL (0.00-0.029) 04/23/17 12:37 C-Reactive Protein 5.10 mg/dL (0.00-1.30) H 04/23/17 21:42 NT-Pro-B Natriuret Pep 2918 pg/mL (0-900) H 04/22/17 23:14 Urine Color Yellow (Yellow) 04/23/17 01:10 Urine Turbidity Clear (Clear) 04/23/17 01:10 Urine pH 5.0 (5.0-7.0) 04/23/17 01:10 Ur Specific [place] 1.023 (1.003-1.030) 04/23/17 01:10 Urine Protein 100 mg/dl mg/dL (Negative) 04/23/17 01:10 Urine Glucose (UA) Neg mg/dL (Negative) 04/23/17 01:10 Urine Ketones 20 mg/dL (Negative) 04/23/17 01:10 Urine Blood Neg (Negative) 04/23/17 01:10 Urine Nitrite Neg (Negative) 04/23/17 01:10 Urine Bilirubin Neg (Negative) 04/23/17 01:10 Urine Urobilinogen < 2.0 mg/dL (<2.0) 04/23/17 01:10 Ur Leukocyte Esterase Sm (Negative) 04/23/17 01:10 Urine WBC (Auto) 55.0 /HPF (0.0-6.0) H 04/23/17 01:10 Urine RBC (Auto) 8.0 /HPF (0.0-6.0) 04/23/17 01:10 U Epithel Cells (Auto) 1.0 /HPF (0-13.0) 04/23/17 01:10 Urine Bacteria (Auto) 1+ /HPF (Negative) 04/23/17 01:10 Amorphous Crystals 1+ 04/23/17 01:10 Hyaline Casts 17 /LPF 04/23/17 01:10 Urine Mucus Few /HPF 04/23/17 01:10 <KEATON BASILIO - Last Filed: 04/24/17 17:38> Assessment and Plan Assessment and plan: I saw and evaluated the patient. I agree with the findings and the plan of care as documented in the Nurse Practitioner's~note, with the following corrections and additions. Hospitalist Physical - Constitutional Vitals: Temp Pulse Resp BP Pulse Ox 99.5 F 69 18 115/64 96 04/24/17 16:00 04/24/17 13:34 04/24/17 13:00 04/24/17 13:34 04/24/17 13:34 Results - Labs CBC & Chem 7: 04/24/17 05:01 04/24/17 06:53 Labs: Laboratory Last Values WBC 11.0 K/mm3 (4.5-11.0) 04/24/17 05:01 RBC 4.60 M/mm3 (3.65-5.03) 04/24/17 05:01 Hgb 14.1 gm/dl (10.1-14.3) 04/24/17 05:01 Hct 42.6 % (30.3-42.9) 04/24/17 05:01 MCV 93 fl (79-97) 04/24/17 05:01 MCH 31 pg (28-32) 04/24/17 05:01 MCHC 33 % (30-34) 04/24/17 05:01 RDW 15.4 % (13.2-15.2) H 04/24/17 05:01 Plt Count 224 K/mm3 (140-440) 04/24/17 05:01 Lymph % (Auto) 7.4 % (13.4-35.0) L 04/24/17 05:01 [place] % (Auto) 10.2 % (0.0-7.3) H 04/24/17 05:01 Eos % (Auto) 0.1 % (0.0-4.3) 04/24/17 05:01 Baso % (Auto) 0.6 % (0.0-1.8) 04/24/17 05:01 Lymph # 0.8 K/mm3 (1.2-5.4) L 04/24/17 05:01 [place] # 1.1 K/mm3 (0.0-0.8) H 04/24/17 05:01 Eos # 0.0 K/mm3 (0.0-0.4) 04/24/17 05:01 Baso # 0.1 K/mm3 (0.0-0.1) 04/24/17 05:01 Seg Neutrophils % 81.7 % (40.0-70.0) H 04/24/17 05:01 Seg Neutrophils # 9.0 K/mm3 (1.8-7.7) H 04/24/17 05:01 D-Dimer 1379.86 ng/mlDDU (0-234) H 04/22/17 23:13 POC ABG pH 7.491 (7.35-7.45) H 04/24/17 05:37 POC ABG pCO2 45.5 (35-45) H 04/24/17 05:37 POC ABG pO2 65 (80-105) L 04/24/17 05:37 POC ABG HCO3 34.8 04/24/17 05:37 POC ABG Total CO2 36 04/24/17 05:37 POC ABG O2 Sat 94 04/24/17 05:37 POC ABG Base Excess 11 04/24/17 05:37 FiO2 40 % 04/24/17 05:37 Sodium 146 mmol/L (137-145) H 04/24/17 06:53 Potassium 4.8 mmol/L (3.6-5.0) 04/24/17 06:53 Chloride 102.7 mmol/L (98-107) 04/24/17 06:53 Carbon Dioxide 32 mmol/L (22-30) H 04/24/17 06:53 Anion Gap 16 mmol/L 04/24/17 06:53 BUN 31 mg/dL (7-17) H 04/24/17 06:53 Creatinine 0.7 mg/dL (0.7-1.2) 04/24/17 06:53 Estimated GFR > 60 ml/min 04/24/17 06:53 BUN/Creatinine Ratio 44.28 % 04/24/17 06:53 Glucose 113 mg/dL (65-100) H 04/24/17 06:53 Lactic Acid 1.40 mmol/L (0.7-2.0) 04/23/17 21:42 Calcium 9.1 mg/dL (8.4-10.2) 04/24/17 06:53 Phosphorus 3.60 mg/dL (2.5-4.5) 04/23/17 21:42 Magnesium 1.90 mg/dL (1.7-2.3) 04/22/17 23:13 Total Creatine Kinase 46 units/L (30-135) 04/23/17 12:37 CK-MB (CK-2) 3.9 ng/mL (0.0-4.0) 04/23/17 12:37 CK-MB (CK-2) Rel Index 8.4 (0-4) H 04/23/17 12:37 Troponin T < 0.010 ng/mL (0.00-0.029) 04/23/17 12:37 C-Reactive Protein 5.10 mg/dL (0.00-1.30) H 04/23/17 21:42 NT-Pro-B Natriuret Pep 2918 pg/mL (0-900) H 04/22/17 23:14 Urine Color Yellow (Yellow) 04/23/17 01:10 Urine Turbidity Clear (Clear) 04/23/17 01:10 Urine pH 5.0 (5.0-7.0) 04/23/17 01:10 Ur Specific [place] 1.023 (1.003-1.030) 04/23/17 01:10 Urine Protein 100 mg/dl mg/dL (Negative) 04/23/17 01:10 Urine Glucose (UA) Neg mg/dL (Negative) 04/23/17 01:10 Urine Ketones 20 mg/dL (Negative) 04/23/17 01:10 Urine Blood Neg (Negative) 04/23/17 01:10 Urine Nitrite Neg (Negative) 04/23/17 01:10 Urine Bilirubin Neg (Negative) 04/23/17 01:10 Urine Urobilinogen < 2.0 mg/dL (<2.0) 04/23/17 01:10 Ur Leukocyte Esterase Sm (Negative) 04/23/17 01:10 Urine WBC (Auto) 55.0 /HPF (0.0-6.0) H 04/23/17 01:10 Urine RBC (Auto) 8.0 /HPF (0.0-6.0) 04/23/17 01:10 U Epithel Cells (Auto) 1.0 /HPF (0-13.0) 04/23/17 01:10 Urine Bacteria (Auto) 1+ /HPF (Negative) 04/23/17 01:10 Amorphous Crystals 1+ 04/23/17 01:10 Hyaline Casts 17 /LPF 04/23/17 01:10 Urine Mucus Few /HPF 04/23/17 01:10
[2017-04-24 08:29] LABS: Anion Gap 16 mmol/L; BUN/Creatinine Ratio 44.28; Blood Urea Nitrogen 31 mg/dL (7-17); Calcium 9.1 mg/dL (8.4-10.2); Carbon Dioxide 32 mmol/L (22-30); Chloride 102.7 mmol/L (98-107); Glucose 113 mg/dL (65-100); Potassium 4.8 mmol/L (3.6-5.0); Sodium 146 mmol/L (137-145)
[2017-04-24] MEDS ORDERED: SIMPLE SYRUP FEEDTUBE PRN ×2 (08:50)
[2017-04-24] MEDS ORDERED: SODIUM BICARBONATE FEEDTUBE PRN (08:50)
[2017-04-24] MEDS ORDERED: PANCREAZE DR 10,500 UNIT FEEDTUBE PRN (08:50)
[2017-04-24] MEDS: PEPCID PO SCH ×2 (10:06→22:00)
[2017-04-24] MEDS: LEVAQUIN 500MG/100ML 500 MG/100 ML BAG IV SCH (10:06)
--- NOTE | 2017-04-24 10:29 | XRay Report ---
AP chest x-ray. Findings: There is been no interval change since yesterday's study. Emphysematous changes are again noted. The endotracheal tube is in satisfactory position.
[2017-04-24] MEDS: BROVANA NEBU IH SCH ×2 (11:04→19:59)
--- NOTE | 2017-04-24 11:49 | Progress Note ---
Assessment and Plan - Patient Problems (1) Acute respiratory failure Current Visit: Yes Status: Acute Qualifiers: Respiratory failure complication: hypoxia and hypercapnia Qualified Code(s) : J96.01 - Acute respiratory failure with hypoxia; J96.02 - Acute respiratory failure with hypercapnia Plan to address problem: - acute on Chronic really - continue aspiration precautions / address VAP bundle daily - continue LANETTE, LABA - continue systemic steroids - wean FiO2 for O2 sats > 90-92% - rest on AC qhs during wean (2) COPD exacerbation Current Visit: Yes Status: Acute Plan to address problem: - continue empiric Antibiotics and follow cultures - as above otherwise (3) HTN (hypertension) Current Visit: No Status: Acute Qualifiers: Hypertension type: H Plan to address problem: - continue prn hydralazine - schedule oral meds shortly (4) HCV (hepatitis C virus) Current Visit: No Status: Chronic Qualifiers: Viral hepatitis chronicity: V Hepatic coma status: H Plan to address problem: - get LFT's - no clinical signs of severe disease complications (5) Discharge planning issues Current Visit: Yes Status: Acute Plan to address problem: - once able to pass SBT will extubate to BIPAP as needed - home at discharge hopefully ....she is critically ill on life sustaining interventions including MVS and at risk for further deterioration including ..30' CCT Subjective Date of service: 04/24/17 Principal diagnosis: Acute on Ch Hypercapnic Hypoxemic Respiratory Failure; Acute COPD exacerbat Interval history: Seen and examined at bedside; 24 hour events reviewed; nursing and respiratory care staff consulted; no adverse overnight events reported to me; remains on MVS ; appropriate during sedation holiday; no emesis or overt aspiration; tenuously tolerating PSV trials but no overt decompensation Objective Vital Signs - 12hr 04/23/17 04/23/17 04/24/17 23:50 23:58 00:00 Temperature 98.5 F Pulse Rate 90 88 Pulse Rate [ Apical] Respiratory 18 18 Rate Blood Pressure 130/91 128/78 O2 Sat by Pulse 96 96 Oximetry 04/24/17 04/24/17 04/24/17 00:06 00:10 00:20 Temperature Pulse Rate 89 89 89 Pulse Rate [ Apical] Respiratory 18 18 18 Rate Blood Pressure 128/78 128/78 128/78 O2 Sat by Pulse 96 96 97 Oximetry 04/24/17 04/24/17 04/24/17 00:30 00:40 00:50 Temperature Pulse Rate 88 90 90 Pulse Rate [ Apical] Respiratory 18 18 18 Rate Blood Pressure 134/85 134/85 128/78 O2 Sat by Pulse 97 97 Oximetry 04/24/17 04/24/17 04/24/17 01:00 01:10 01:20 Temperature Pulse Rate 91 H 89 87 Pulse Rate [ Apical] Respiratory 19 18 18 Rate Blood Pressure 143/102 125/87 148/102 O2 Sat by Pulse 96 97 95 Oximetry 04/24/17 04/24/17 04/24/17 01:30 01:40 01:50 Temperature Pulse Rate 83 85 86 Pulse Rate [ Apical] Respiratory 18 18 18 Rate Blood Pressure 136/88 136/88 125/87 O2 Sat by Pulse 95 96 95 Oximetry 04/24/17 04/24/17 04/24/17 02:00 02:10 02:19 Temperature Pulse Rate 85 87 Pulse Rate [ Apical] Respiratory 18 18 21 Rate Blood Pressure 156/96 156/96 O2 Sat by Pulse 96 99 Oximetry 04/24/17 04/24/17 04/24/17 02:20 02:30 02:40 Temperature Pulse Rate 85 86 87 Pulse Rate [ Apical] Respiratory 18 18 18 Rate Blood Pressure 136/88 153/96 153/96 O2 Sat by Pulse 96 96 97 Oximetry 04/24/17 04/24/17 04/24/17 02:50 03:00 03:10 Temperature Pulse Rate 84 83 83 Pulse Rate [ Apical] Respiratory 18 18 18 Rate Blood Pressure 153/96 130/78 130/78 O2 Sat by Pulse 96 93 96 Oximetry 04/24/17 04/24/17 04/24/17 03:20 03:30 03:39 Temperature 98.2 F Pulse Rate 84 83 Pulse Rate [ Apical] Respiratory 18 18 Rate Blood Pressure 130/78 133/78 O2 Sat by Pulse 95 Oximetry 04/24/17 04/24/17 04/24/17 03:40 03:50 04:00 Temperature Pulse Rate 83 83 80 Pulse Rate [ Apical] Respiratory 19 18 18 Rate Blood Pressure 133/78 130/78 135/80 O2 Sat by Pulse 97 96 Oximetry 04/24/17 04/24/17 04/24/17 04:10 04:11 04:20 Temperature Pulse Rate 78 81 Pulse Rate [ 76 Apical] Respiratory 18 18 Rate Blood Pressure 135/80 135/80 O2 Sat by Pulse 96 96 Oximetry 04/24/17 04/24/17 04/24/17 04:30 04:40 04:50 Temperature Pulse Rate 78 77 76 Pulse Rate [ Apical] Respiratory 18 18 18 Rate Blood Pressure 133/75 133/75 133/75 O2 Sat by Pulse 96 97 Oximetry 04/24/17 04/24/17 04/24/17 05:00 05:10 05:20 Temperature Pulse Rate 78 79 80 Pulse Rate [ Apical] Respiratory 18 18 18 Rate Blood Pressure 133/75 155/94 155/94 O2 Sat by Pulse 98 97 95 Oximetry 04/24/17 04/24/17 04/24/17 05:22 05:30 05:35 Temperature Pulse Rate 80 78 80 Pulse Rate [ Apical] Respiratory 18 Rate Blood Pressure 155/94 134/86 134/86 O2 Sat by Pulse 95 94 95 Oximetry 04/24/17 04/24/17 04/24/17 05:40 05:50 06:00 Temperature Pulse Rate 78 77 77 Pulse Rate [ 79 Apical] Respiratory 18 18 19 Rate Blood Pressure 134/86 134/86 164/91 O2 Sat by Pulse 95 97 98 Oximetry 04/24/17 04/24/17 04/24/17 06:10 06:20 06:30 Temperature Pulse Rate 79 78 77 Pulse Rate [ Apical] Respiratory 18 19 19 Rate Blood Pressure 136/81 136/81 141/76 O2 Sat by Pulse 99 98 Oximetry 04/24/17 04/24/17 04/24/17 06:40 06:50 07:00 Temperature Pulse Rate 77 78 77 Pulse Rate [ Apical] Respiratory 18 18 17 Rate Blood Pressure 141/76 141/76 135/74 O2 Sat by Pulse 99 99 96 Oximetry 04/24/17 04/24/17 04/24/17 07:10 07:20 07:30 Temperature Pulse Rate 78 79 77 Pulse Rate [ Apical] Respiratory 18 16 18 Rate Blood Pressure 135/74 135/74 118/66 O2 Sat by Pulse 100 98 96 Oximetry 04/24/17 04/24/17 04/24/17 07:40 07:50 08:00 Temperature 97.6 F Pulse Rate 79 79 73 Pulse Rate [ 74 Apical] Respiratory 18 19 18 Rate Blood Pressure 118/66 118/66 129/73 O2 Sat by Pulse 97 99 97 Oximetry 04/24/17 04/24/17 04/24/17 08:10 08:30 09:00 Temperature Pulse Rate 75 73 69 Pulse Rate [ Apical] Respiratory 19 18 18 Rate Blood Pressure 129/73 120/72 117/69 O2 Sat by Pulse 97 98 96 Oximetry 04/24/17 04/24/17 04/24/17 09:30 10:00 10:15 Temperature Pulse Rate 70 72 75 Pulse Rate [ Apical] Respiratory 18 18 Rate Blood Pressure 120/70 120/73 129/73 O2 Sat by Pulse 97 Oximetry 04/24/17 04/24/17 10:30 11:00 Temperature Pulse Rate 68 66 Pulse Rate [ Apical] Respiratory 18 18 Rate Blood Pressure 127/75 124/74 O2 Sat by Pulse 94 Oximetry Constitutional: no acute distress, other (sedated RASS -1) Eyes: non-icteric ENT: oropharynx moist Neck: supple, no lymphadenopathy Effort: mildly labored Ascultation: Bilateral: diminished breath sounds, rhonchi Cardiovascular: regular rate and rhythm Gastrointestinal: normoactive bowel sounds, soft, non-tender, non-distended Integumentary: normal Extremities: no cyanosis, no edema, pink and warm, pulses normal Neurologic: normal mental status, non-focal exam, pupils equal and round, motor strength normal and, other (sedated) Psychiatric: other (sedated) CBC and BMP: 04/26/17 06:48 04/26/17 06:48 ABG, PT/INR, D-dimer: ABG POC ABG pH 7.491 (7.35-7.45) H 04/24/17 05:37 POC ABG pCO2 45.5 (35-45) H 04/24/17 05:37 POC ABG pO2 65 (80-105) L 04/24/17 05:37 POC ABG HCO3 34.8 04/24/17 05:37 POC ABG Total CO2 36 04/24/17 05:37 POC ABG O2 Sat 94 04/24/17 05:37 PT/INR, D-dimer D-Dimer 1379.86 ng/mlDDU (0-234) H 04/22/17 23:13 Abnormal lab findings: Abnormal Labs 04/23/17 04/23/17 04/23/17 06:20 12:37 21:42 RDW Lymph % (Auto) [place] % (Auto) Lymph # [place] # Seg Neutrophils % Seg Neutrophils # POC ABG pH POC ABG pCO2 POC ABG pO2 Sodium Carbon Dioxide BUN Glucose CK-MB (CK-2) 5.9 H CK-MB (CK-2) Rel Index 7.1 H 8.4 H C-Reactive Protein 5.10 H 04/24/17 04/24/17 04/24/17 05:01 05:37 06:53 RDW 15.4 H Lymph % (Auto) 7.4 L [place] % (Auto) 10.2 H Lymph # 0.8 L [place] # 1.1 H Seg Neutrophils % 81.7 H Seg Neutrophils # 9.0 H POC ABG pH 7.491 H POC ABG pCO2 45.5 H POC ABG pO2 65 L Sodium 146 H Carbon Dioxide 32 H BUN 31 H Glucose 113 H CK-MB (CK-2) CK-MB (CK-2) Rel Index C-Reactive Protein Chest x-ray: image reviewed
[2017-04-24] MEDS: LOVENOX SUB-Q SCH (13:49)
--- NOTE | 2017-04-24 17:25 | Consultation ---
History of Present Illness - Reason for Consult Consult date: 04/24/17 - History of Present Illness 56-year-old woman with a history of COPD, hepatitis C approximately emergency room for shortness of breath. She was found to be in respiratory distress. Patient had saturation of 77%. She was started on BiPAP, her carbon dioxide increased and she became sedated. The patient was subsequently intubated. CAT scan of the chest was was not done because of poor IV access, her d-dimer was elevated. Patient is sedated, unable to obtain review of systems. intubated CTAP: left renal stone 2.8cm WBC 11k---normal Cr 0.7---normal rubio draining belem urine A/P left renal stone needs out pt cysto, rpg, stent, ESWL (done every other [facility]---not this week) when stable Medications and Allergies Allergies Allergy/AdvReac Type Severity Reaction Status Date / Time No Known Allergies Allergy Verified 07/22/16 22:21 Home Medications Medication Instructions Recorded Confirmed Last Taken Type Ipratropium [Atrovent NEB] 0.5 mg IH Q4HR 30 Days 07/25/16 04/23/17 Unknown Rx ALBUTEROL Inhaler [Proair] 2 puff IH QID PRN 04/23/17 04/23/17 Unknown History Budesoni/Formotero 160-4.5(Nf) 2 puff IH BID 04/23/17 04/23/17 Unknown History [Symbicort 160-4.5 (Nf)] Tizanidine HCl [Zanaflex] 4 mg PO TID PRN 04/23/17 04/23/17 Unknown History Ursodiol (Nf) [Actigall (Nf)] 300 mg PO BID 04/23/17 04/23/17 Unknown History Active Meds: Active Medications Acetaminophen (Tylenol) 650 mg PO Q4H PRN PRN Reason: Pain MILD(1-3)/Fever >100.5/HILL Acetaminophen (Tylenol) 650 mg FL Q4H PRN PRN Reason: Pain MILD(1-3)/Fever >100.5/HILL Lipase/Protease/Amylase (Pancreishaane Dr 10,500 Unit) 1 each FEEDTUBE PRN PRN PRN Reason: For Clogged Feeding Tube Arformoterol Tartrate (Brovana Nebu) 15 mcg IH Q12HRT PENDING SALE TO [facility] Last Admin: 04/24/17 11:04 Dose: 15 mcg Enoxaparin Sodium (Lovenox) 40 mg SUB-Q QDAY@1000 MELISSA Last Admin: 04/24/17 13:49 Dose: 40 mg Famotidine (Pepcid) 20 mg PO BID PENDING SALE TO [facility] Last Admin: 04/24/17 10:06 Dose: 20 mg Hydrophilic Ointment (Vaseline Lip Therapy) 1 applic TP Q2HR PRN PRN Reason: Dry Lips Fentanyl Citrate (Fentanyl Drip Premix) 2,000 mcg in 100 mls @ 2.495 mls/hr IV TITR MELISSA; 1 MCG/KG/HR PRN Reason: Protocol Last Titration: 04/24/17 13:30 Dose: 1 mcg/kg/hr, 2.495 mls/hr Midazolam HCl 100 mg/ Sodium (Chloride) 100 mls @ 2 mls/hr IV TITR MELISSA; 2 MG/HR PRN Reason: Protocol Last Titration: 04/24/17 13:00 Dose: 0 mg/hr, 0 mls/hr Sodium Chloride (Nacl 0.9% 1000 Ml) 1,000 mls @ 75 mls/hr IV DIRECT PENDING SALE TO [facility] Last Admin: 04/24/17 05:33 Dose: 75 mls/hr Levofloxacin/Dextrose (Levaquin 500mg/100ml) 500 mg in 100 mls @ 100 mls/hr IV Q24HR MELISSA PRN Reason: Protocol Last Admin: 04/24/17 10:06 Dose: 100 mls/hr Methylprednisolone Sodium Succinate (Solu-Medrol) 60 mg IV Q6H PENDING SALE TO [facility] Last Admin: 04/24/17 16:25 Dose: 60 mg Multi-Ingred Cream/Lotion/Oil/Oint (Artificial Tears Ophth Oint) 1 applic OU Q4HR PRN PRN Reason: Dry Eye(s) Ondansetron HCl (Zofran) 4 mg IV Q8H PRN PRN Reason: N/V unrelieved by Reglan Simple Syrup (Simple Syrup) 15 ml FEEDTUBE PRN PRN PRN Reason: Hypoglycemia Simple Syrup (Simple Syrup) 30 ml FEEDTUBE PRN PRN PRN Reason: Hypoglycemia Sodium Bicarbonate (Sodium Bicarbonate) 325 mg FEEDTUBE PRN PRN PRN Reason: For Clogged Feeding Tube Sodium Chloride (Nacl 0.9% 500 Ml) 1 ml IV DIRECT MELISSA Exam - Constitutional Vitals: Temp Pulse Resp BP Pulse Ox 99.5 F 69 18 115/64 96 04/24/17 16:00 04/24/17 13:34 04/24/17 13:00 04/24/17 13:34 04/24/17 13:34 Results - Labs CBC & Chem 7: 04/24/17 05:01 04/24/17 06:53 Labs: Abnormal lab results 04/23/17 04/24/17 04/24/17 Range/Units 21:42 05:01 05:37 RDW 15.4 H (13.2-15.2) % Lymph % (Auto) 7.4 L (13.4-35.0) % [place] % (Auto) 10.2 H (0.0-7.3) % Lymph # 0.8 L (1.2-5.4) K/mm3 [place] # 1.1 H (0.0-0.8) K/mm3 Seg Neutrophils % 81.7 H (40.0-70.0) % Seg Neutrophils # 9.0 H (1.8-7.7) K/mm3 POC ABG pH 7.491 H (7.35-7.45) POC ABG pCO2 45.5 H (35-45) POC ABG pO2 65 L (80-105) Sodium (137-145) mmol/L Carbon Dioxide (22-30) mmol/L BUN (7-17) mg/dL Glucose (65-100) mg/dL C-Reactive Protein 5.10 H (0.00-1.30) mg/dL 04/24/17 Range/Units 06:53 RDW (13.2-15.2) % Lymph % (Auto) (13.4-35.0) % [place] % (Auto) (0.0-7.3) % Lymph # (1.2-5.4) K/mm3 [place] # (0.0-0.8) K/mm3 Seg Neutrophils % (40.0-70.0) % Seg Neutrophils # (1.8-7.7) K/mm3 POC ABG pH (7.35-7.45) POC ABG pCO2 (35-45) POC ABG pO2 (80-105) Sodium 146 H (137-145) mmol/L Carbon Dioxide 32 H (22-30) mmol/L BUN 31 H (7-17) mg/dL Glucose 113 H (65-100) mg/dL C-Reactive Protein (0.00-1.30) mg/dL
[2017-04-24] MEDS: fentaNYL DRIP Premix 2,000 MCG/100 ML BAG IV SCH (19:26)
--- NOTE | 2017-04-24 23:11 | Consultation ---
PULMONARY CRITICAL CARE CONSULTATION CONSULTING PHYSICIAN: Dr. Thayer. REASON FOR CONSULTATION: Acute on chronic hypoxemic hypercapnic respiratory failure. CHIEF COMPLAINT AND HISTORY OF PRESENT ILLNESS: The patient is a 56-year-old female with past medical history significant amongst other things for chronic obstructive lung disease. It is unclear if she is home oxygen dependent. She was brought into the Emergency Room earlier today by emergency medical services from home in respiratory distress. She was hypoxemic, O2 sats 77% even on supplemental oxygen. She was placed on nonrebreather went only into the 80s. They were unable to establish an IV access on the way in. She has a 10+ pack year tobacco smoking history, but according to the family and the patient, they have informed the Emergency Room that she was no longer smoking. She continues to retain CO2. She became decompensated despite being on high BiPAP settings and ultimately she was placed on mechanical ventilatory support. When I stopped by to see her, she remained on the mechanical ventilator. The nurse has just reported some ectopy, but it was nonsustained. I do not have any history of emesis or overt aspiration. There is no family member to give me any history. It is unclear if she was having fevers, chills, or any other pneumonia type symptoms. Her flu and pneumonia status are unknown. In terms of vaccination, this is as much of the history of presentation as I have. PAST MEDICAL HISTORY: Chronic obstructive lung disease, gastroesophageal reflux disease, and tobacco smoking history, not a current smoker. PAST SURGICAL HISTORY: Unknown. MEDICATIONS: She was on at the time I stopped by to see her, according to the medication administration record included the following: Tylenol 650 mg p.o. q.4h. p.r.n. mild pain, fentanyl drip was started at 1 mcg per kg per hour, Levaquin 500 mg IV daily, Solu-Medrol 125 mg IV q.6h., Versed drip was going at 2 mg an hour, Zofran 4 mg IV q.8h. p.r.n. nausea and vomiting. ALLERGIES: No known drug allergies. DIET: Thin lady bordering on being cachectic. She does have barrel chest. Acute weight loss or gain history is unknown. FAMILY AND SOCIAL HISTORY: Apparently, lives in the community, it is unclear if she is . Remote tobacco smoking history. Current tobacco, alcohol, or illicit drug use or abuse history are really unknown. REVIEW OF SYSTEMS: Difficult to obtain secondary to her medical and mental status. Since she has been here, no gross hematochezia or melena, no gross hematuria, no hematemesis, no hemoptysis, no bloody tracheal secretions, no witnessed seizures. Review of systems is otherwise unobtainable or as in body of the history above. PHYSICAL EXAMINATION: VITAL SIGNS: At presentation in the Emergency Room reviewed vital signs shows that she was afebrile at presentation, first temperature I have is actually a low grade fever of 99.5 degrees Fahrenheit, at that time, pulse was 107, respiratory rate was 18, blood pressure was 106/79, oxygen sats were 98%, inspired oxygen concentration was not recorded. HEAD, EYES, EARS, NOSE, AND THROAT: Pupils are equal, round, about 3-4 mm, reactive to light. Extraocular muscle movements could not be assessed. Endotracheal tube was in place, taped at the lips around 20 cm. Grossly, there were no palpable lymph nodes in the supraclavicular or submandibular lymph node chains. LUNGS: Auscultation of both lung velazquez significant mostly for diminished and distant bilateral breath sounds, prolonged expiratory phase; however, no active wheezing. HEART: Heart sounds 1 and 2 are heard. They were regular in rate and rhythm at the time of my evaluation. ABDOMEN: Soft, full, bowel sounds are positive, nontender. EXTREMITIES: Without overt digital clubbing, cyanosis, or pedal edema. NEUROLOGIC: She has spontaneous movement to all extremities. She was sedated. LABORATORY DATA: From my review are as follows: White cell count 16,700, hemoglobin 14.7, hematocrit 46.5, platelet count was 261. D-dimer was elevated at 1379. Arterial blood gas at presentation 7.32 on the pH, pCO2 of 73, pO2 of 154 that was on 50%. At the time I saw her, pH was 7.44, pCO2 was 53, pO2 was 97% that was on the mechanical ventilator settings, it was the assist control mode of ventilation, tidal volumes 450, sed rate of 18, PEEP of 5. She was not breathing over the set rate. Serum sodium was 145, potassium 4.7, chloride 99, bicarbonate 32, BUN 12, creatinine 0.5, glucose was 124. BNP was elevated at 2918. Urinalysis, small leukocyte esterase, 55 white cells per high power field. Cardiac enzymes are within normal limits. Microbiology studies, no growth to date on both the blood cultures on the tracheal aspirate. A chest x-ray was done. I have reviewed the chest x-ray. I have also reviewed the radiologist's interpretation. I do agree mostly chronic looking fibrotic type changes with likely significant bullous disease, however, more predominant in the bases. Cardiovascular silhouette borderline enlarged taken the COPD and hyperinflation into consideration. A CT angiogram was also done of her chest with IV contrast. I have reviewed the film and I have reviewed the radiologist's interpretation. I must say I do agree with it. I do not see any gross filling defects consistent with the pulmonary emboli. She has severe bullous disease, particularly involving the lower lobes. Post-intubation chest x-ray shows that the ET tube tip is in between the clavicular heads on the aortic knob. ASSESSMENT AND PLAN: We have a middle-aged lady in with an acute COPD exacerbation as usual the question is why. I do not see any real focal suggestion of pneumonia. Venous thromboembolic disorder workup is negative so far. I do note she has a possible urinary tract infection. I note the leukocytosis and this may have precipitated increased work of breathing. Whatever the case from a respiratory standpoint, she is appropriately on mechanical ventilatory support. I do hope we are able to get her off the mechanical ventilator. We will continue bronchodilators. I will order short acting bronchodilators scheduled at q.6h. in the short time. I will also begin long acting bronchodilators in the form of Brovana, systemic steroids will be continued, I will reduce the dose to 60 mg IV q.6h. We will complete the venous thromboembolic disorder workup with bilateral lower extremity Dopplers, no acute indication for empiric full anticoagulation. Oxygen will be weaned to keep sats greater than or equal to about 92-94%. Aspiration precautions and ventilator bundles will be addressed daily. We will also have daily sedation vacations in need to try to reduce her length of stay on the ventilator. From a cardiovascular standpoint, she is doing relatively well. A 12-lead EKG has been ordered in light of the ectopy reported by the nursing staff. Cardiac enzymes are negative so far. Acute coronary syndrome workup will be done. Cardiology evaluation will be at the behest of the attending physician. From infectious disease standpoint, she is appropriately on community acquired pneumonia therapy empirically and patient with severe COPD. She has been cultured. I will also order a CRP level. I note the leukocytosis; however, it is unclear if she was on any medications at home in terms of systemic steroids. I will not be surprised if that was the case. Anti-infectives will ultimately be deescalated based on results of clinical and microbiologic data. From a GI and nutritional standpoint, oral nutrition will be the feeding modality of choice and nutritional consult will be placed, right now feeding tube will be ordered and she will be placed also on GI prophylaxis. Aspiration precautions will be maintained. From a renal standpoint, no major electrolyte abnormalities. I note the elevated BNP. She may well have right-sided failure, clinically she does not seem to be volume overloaded. I will hold on diuretics in this case and follow her clinically. Inputs and outputs will be monitored. Electrolytes will be corrected as necessary. From a [employer] standpoint, the exam was grossly nonfocal at presentation. No acute indication for neuro imaging. We will follow her clinically. From a general and hospital healthcare maintenance standpoint, she is going to be placed on GI and DVT prophylaxis. Flu and pneumonia vaccination will be per protocol. Thank you very much for the consult, Dr. Thayer. We will follow along and make further recommendations as picture progresses/becomes clearer. At this point, I have spent about 30-35 minutes of critical care time without overlap and excluding any procedural time that may be necessary. She is critically ill on life-sustaining interventions including mechanical ventilatory support at higher risk for further deterioration including . [facility]# [id number] FERMIN/JESICA
[2017-04-25 04:40] LABS: ISTAT Base Excess 8; ISTAT HCO3 33.7; ISTAT PCO2 58.2 (35-45); ISTAT PH 7.371 (7.35-7.45); ISTAT PO2 85 (80-105); ISTAT SO2 96; ISTAT TCO2 35
[2017-04-25] MEDS: NACL 0.9% 1000 ML 1,000 ML IV SCH (04:55)
--- NOTE | 2017-04-25 07:35 | XRay Report ---
Chest: Compared to 04/24/17. History: Respiratory failure. Findings: Normal cardiomediastinal silhouette. Trachea is midline. Stable support system. Evidence of emphysema. No consolidation or pleural effusion or pneumothorax. Impression: Emphysema. No acute lung changes. Distal Dobbhoff tube is in stomach with tip pointing at the GE junction.
--- NOTE | 2017-04-25 07:44 | Vascular Lab Report ---
LOWER EXTREMITY VENOUS DUPLEX: REASON FOR EXAM: Elevated d-dimer. COMMENTS ON THE RIGHT: All veins visualized are freely compressible without evidence of internal echogenicity. Flow is spontaneous and phasic throughout. COMMENTS ON THE LEFT: All veins visualized are freely compressible without evidence of internal echogenicity. Flow is spontaneous and phasic throughout. IMPRESSION: No evidence of acute or chronic deep venous thrombosis in either lower extremity.
[2017-04-25] MEDS: BROVANA NEBU IH SCH ×2 (09:30→22:06)
[2017-04-25] MEDS: PEPCID PO SCH ×2 (10:10→21:40)
[2017-04-25] MEDS: LOVENOX SUB-Q SCH (10:11)
[2017-04-25] MEDS: LEVAQUIN 500MG/100ML 500 MG/100 ML BAG IV SCH (10:11)
--- NOTE | 2017-04-25 12:26 | Progress Note ---
Assessment and Plan (1) Acute respiratory failure Current Visit: Yes Status: Acute Qualifiers: Respiratory failure complication: hypoxia and hypercapnia Qualified Code(s) : J96.01 - Acute respiratory failure with hypoxia; J96.02 - Acute respiratory failure with hypercapnia Plan to address problem: - acute on Chronic really - continue aspiration precautions / address VAP bundle daily - continue LANETTE, LABA - continue systemic steroids - wean FiO2 for O2 sats > 90-92% - get ABG after 2 hours on SBT - extubate to BIPAP if ABG marginal as otherwise clinically OK for extubation (2) COPD exacerbation Current Visit: Yes Status: Acute Plan to address problem: - continue empiric Antibiotics and follow cultures - as above otherwise (3) HTN (hypertension) Current Visit: No Status: Acute Qualifiers: Hypertension type: H Plan to address problem: - continue prn hydralazine - schedule oral meds shortly (4) HCV (hepatitis C virus) Current Visit: No Status: Chronic Qualifiers: Viral hepatitis chronicity: V Hepatic coma status: H Plan to address problem: - follow LFT's - no clinical signs of severe disease complications (5) Discharge planning issues Current Visit: Yes Status: Acute Plan to address problem: - once able to pass SBT will extubate to BIPAP as needed - home at discharge hopefully ....she remains critically ill on life sustaining interventions including MVS and at risk for further deterioration including ..30' CCT Subjective Date of service: 04/25/17 Principal diagnosis: Acute on Chronic Hypercapnic Hypoxemic Resp Failure Interval history: Seen and examined at bedside; 24 hour events reviewed; nursing and respiratory care staff consulted; no adverse overnight events reported to me; on PSV trial now and tolerating well; anxious; wants ETT pulled; denies acute chest pains; No N/V/F/C Objective Vital Signs - 12hr 04/25/17 04/25/17 04/25/17 00:30 00:35 01:00 Temperature Pulse Rate 71 62 Pulse Rate [ 72 Apical] Respiratory 12 12 12 Rate Blood Pressure 117/63 112/61 O2 Sat by Pulse 97 95 95 Oximetry 04/25/17 04/25/17 04/25/17 01:30 02:00 02:30 Temperature Pulse Rate 59 L 63 59 L Pulse Rate [ 63 Apical] Respiratory 12 12 12 Rate Blood Pressure 112/61 112/61 119/66 O2 Sat by Pulse 97 97 97 Oximetry 04/25/17 04/25/17 04/25/17 03:00 03:12 03:20 Temperature 99 F Pulse Rate 63 67 Pulse Rate [ Apical] Respiratory 12 Rate Blood Pressure 107/59 107/59 O2 Sat by Pulse 95 97 Oximetry 04/25/17 04/25/17 04/25/17 03:30 04:00 04:17 Temperature Pulse Rate 62 65 Pulse Rate [ 68 Apical] Respiratory 12 10 L 12 Rate Blood Pressure 107/59 119/68 O2 Sat by Pulse 97 94 96 Oximetry 04/25/17 04/25/17 04/25/17 04:30 05:00 05:30 Temperature Pulse Rate 65 60 51 L Pulse Rate [ Apical] Respiratory 12 18 18 Rate Blood Pressure 119/68 104/59 109/60 O2 Sat by Pulse 96 95 94 Oximetry 04/25/17 04/25/17 04/25/17 05:34 06:00 06:30 Temperature Pulse Rate 64 63 Pulse Rate [ 59 L Apical] Respiratory 18 11 L 17 Rate Blood Pressure 109/60 122/77 O2 Sat by Pulse 97 99 98 Oximetry 04/25/17 04/25/17 04/25/17 07:00 07:30 08:00 Temperature 98.9 F Pulse Rate 95 H 53 L Pulse Rate [ 52 L Apical] Respiratory 18 18 Rate Blood Pressure 122/77 122/77 136/74 O2 Sat by Pulse 100 100 96 Oximetry 04/25/17 04/25/17 04/25/17 08:30 09:00 09:30 Temperature Pulse Rate 54 L 74 84 Pulse Rate [ Apical] Respiratory 18 18 15 Rate Blood Pressure 140/85 171/90 171/90 O2 Sat by Pulse 100 96 100 Oximetry 04/25/17 10:00 Temperature Pulse Rate 56 L Pulse Rate [ Apical] Respiratory 18 Rate Blood Pressure 149/84 O2 Sat by Pulse 99 Oximetry Constitutional: no acute distress, alert Eyes: non-icteric ENT: oropharynx moist Neck: supple Effort: mildly labored Ascultation: Bilateral: clear, diminished breath sounds Cardiovascular: regular rate and rhythm Gastrointestinal: normoactive bowel sounds, soft, non-tender, non-distended Integumentary: normal Extremities: no cyanosis, no edema, pink and warm, pulses normal Neurologic: normal mental status, non-focal exam, pupils equal and round, motor strength normal and Psychiatric: anxious CBC and BMP: 04/26/17 06:48 04/26/17 06:48 ABG, PT/INR, D-dimer: ABG POC ABG pH 7.371 (7.35-7.45) 04/25/17 03:36 POC ABG pCO2 58.2 (35-45) H 04/25/17 03:36 POC ABG pO2 85 (80-105) 04/25/17 03:36 POC ABG HCO3 33.7 04/25/17 03:36 POC ABG Total CO2 35 04/25/17 03:36 POC ABG O2 Sat 96 04/25/17 03:36 PT/INR, D-dimer D-Dimer 1379.86 ng/mlDDU (0-234) H 04/22/17 23:13 Abnormal lab findings: Abnormal Labs 04/23/17 04/23/17 04/23/17 06:20 12:37 21:42 RDW Lymph % (Auto) [place] % (Auto) Lymph # [place] # Seg Neutrophils % Seg Neutrophils # POC ABG pH POC ABG pCO2 POC ABG pO2 Sodium Carbon Dioxide BUN Glucose CK-MB (CK-2) 5.9 H CK-MB (CK-2) Rel Index 7.1 H 8.4 H C-Reactive Protein 5.10 H 04/24/17 04/24/17 04/24/17 05:01 05:37 06:53 RDW 15.4 H Lymph % (Auto) 7.4 L [place] % (Auto) 10.2 H Lymph # 0.8 L [place] # 1.1 H Seg Neutrophils % 81.7 H Seg Neutrophils # 9.0 H POC ABG pH 7.491 H POC ABG pCO2 45.5 H POC ABG pO2 65 L Sodium 146 H Carbon Dioxide 32 H BUN 31 H Glucose 113 H CK-MB (CK-2) CK-MB (CK-2) Rel Index C-Reactive Protein 04/25/17 03:36 RDW Lymph % (Auto) [place] % (Auto) Lymph # [place] # Seg Neutrophils % Seg Neutrophils # POC ABG pH POC ABG pCO2 58.2 H POC ABG pO2 Sodium Carbon Dioxide BUN Glucose CK-MB (CK-2) CK-MB (CK-2) Rel Index C-Reactive Protein Chest x-ray: image reviewed
[2017-04-25 16:01] LABS: ISTAT Base Excess 8; ISTAT HCO3 34.5; ISTAT PCO2 71.4 (35-45); ISTAT PH 7.293 (7.35-7.45); ISTAT PO2 118 (80-105); ISTAT SO2 98; ISTAT TCO2 37
[2017-04-25] MEDS: APRESOLINE IV PRN ×2 (18:06→22:11)
--- NOTE | 2017-04-25 19:06 | Progress Note ---
Assessment and Plan Assessment and plan: Patient is a 56-year-old woman with a history of COPD, hepatitis C presents to the emergency room for shortness of breath. She was found to be in respiratory distress. Patient had saturation of 77%. She was started on BiPAP, her carbon dioxide increased and she became sedated. The patient was subsequently intubated. Acute respiratory failure with hypoxia Patient currently intubated and sedated. No acute respiratory distress noted. Aggressive Nebulizers/Inhalers ABG when necessary Oxygen supplement Supportive care Sepsis secondary UTI Blood cultures collected prior to antibiotic and culture. Follow blood cultures. Initiated empiric treatment IV Levaquin IV fluid hydration Supportive care Hydronephrosis CTA showed an 2.8x1.8cm stone in the left reneal pelvis Urology consulted Acute exacerbation of chronic obstructive pulmonary disease (COPD), Continue on Duoneb every 6 hours Wean IV steroid Solumedrol 125mg every 6 hours Continue on empiric treatment of IV Levaquin. Oxygen as necessary Urinary Tract Infection IV fluid hydration Initiated empiric treatment IV Levaquin Supportive care Hepatitis C Stable follow up with GI as outpatient Elevated D-fabián CTA no evidence of PE VL LE Doppler no evidence of DVT/SVT DVT/Prophylaxis Lovenox Left renal stone: Evaluated By urology, outpatient cystoscopy History Interval history: Patient was seen and examined. Follow-up on current diagnosis/respiratory failure, patient is sitting up in the bed waiting to be extubated. Overnight uneventful. Patient denies any chest pain, shortness breath, nausea/vomiting or severe headaches. Imaging, nursing note, chart, labs and old chart reviewed. Discussed with patient. Hospitalist Physical - Physical exam Narrative exam: GEN: Intubated NAD, AWAKE, ALERT, ORIENTATED HEENT: NCAT, EOMI, PERRL, OP Clear, E2 to place NECK: supple, no adenopathy, no thyromegaly, no JVD CVS/HEART: RRR, NORMAL S1S2, NO JVD, pulses present bilaterally CHEST/LUNGS: symmetrical chest expansion, good air entry bilaterally GI/Abdomen: soft, NTND, good bowel sounds, no guarding or rebound /Bladder: no suprapubic tenderness, no CVA or paraspinal tenderness EXT/Skin: no c/c/e, no significant edema or obvious rash MSK: FROM x 4 Neuro: CN 2-12 grossly intact, no new focal deficits Psych: calm - Constitutional Vitals: Temp Pulse Resp BP Pulse Ox 98.7 F 77 20 179/111 97 04/25/17 16:00 04/25/17 18:06 04/25/17 18:00 04/25/17 18:06 04/25/17 18:00 General appearance: Present: no acute distress, other (intubated and sedated ) Results - Labs CBC & Chem 7: 04/24/17 05:01 04/24/17 06:53 Labs: Laboratory Last Values WBC 11.0 K/mm3 (4.5-11.0) 04/24/17 05:01 RBC 4.60 M/mm3 (3.65-5.03) 04/24/17 05:01 Hgb 14.1 gm/dl (10.1-14.3) 04/24/17 05:01 Hct 42.6 % (30.3-42.9) 04/24/17 05:01 MCV 93 fl (79-97) 04/24/17 05:01 MCH 31 pg (28-32) 04/24/17 05:01 MCHC 33 % (30-34) 04/24/17 05:01 RDW 15.4 % (13.2-15.2) H 04/24/17 05:01 Plt Count 224 K/mm3 (140-440) 04/24/17 05:01 Lymph % (Auto) 7.4 % (13.4-35.0) L 04/24/17 05:01 [place] % (Auto) 10.2 % (0.0-7.3) H 04/24/17 05:01 Eos % (Auto) 0.1 % (0.0-4.3) 04/24/17 05:01 Baso % (Auto) 0.6 % (0.0-1.8) 04/24/17 05:01 Lymph # 0.8 K/mm3 (1.2-5.4) L 04/24/17 05:01 [place] # 1.1 K/mm3 (0.0-0.8) H 04/24/17 05:01 Eos # 0.0 K/mm3 (0.0-0.4) 04/24/17 05:01 Baso # 0.1 K/mm3 (0.0-0.1) 04/24/17 05:01 Seg Neutrophils % 81.7 % (40.0-70.0) H 04/24/17 05:01 Seg Neutrophils # 9.0 K/mm3 (1.8-7.7) H 04/24/17 05:01 D-Dimer 1379.86 ng/mlDDU (0-234) H 04/22/17 23:13 POC ABG pH 7.293 (7.35-7.45) L 04/25/17 14:19 POC ABG pCO2 71.4 (35-45) H 04/25/17 14:19 POC ABG pO2 118 (80-105) H 04/25/17 14:19 POC ABG HCO3 34.5 04/25/17 14:19 POC ABG Total CO2 37 04/25/17 14:19 POC ABG O2 Sat 98 04/25/17 14:19 POC ABG Base Excess 8 04/25/17 14:19 FiO2 40 % 04/25/17 14:19 Sodium 146 mmol/L (137-145) H 04/24/17 06:53 Potassium 4.8 mmol/L (3.6-5.0) 04/24/17 06:53 Chloride 102.7 mmol/L (98-107) 04/24/17 06:53 Carbon Dioxide 32 mmol/L (22-30) H 04/24/17 06:53 Anion Gap 16 mmol/L 04/24/17 06:53 BUN 31 mg/dL (7-17) H 04/24/17 06:53 Creatinine 0.7 mg/dL (0.7-1.2) 04/24/17 06:53 Estimated GFR > 60 ml/min 04/24/17 06:53 BUN/Creatinine Ratio 44.28 % 04/24/17 06:53 Glucose 113 mg/dL (65-100) H 04/24/17 06:53 Lactic Acid 1.40 mmol/L (0.7-2.0) 04/23/17 21:42 Calcium 9.1 mg/dL (8.4-10.2) 04/24/17 06:53 Phosphorus 3.60 mg/dL (2.5-4.5) 04/23/17 21:42 Magnesium 1.90 mg/dL (1.7-2.3) 04/22/17 23:13 Total Creatine Kinase 46 units/L (30-135) 04/23/17 12:37 CK-MB (CK-2) 3.9 ng/mL (0.0-4.0) 04/23/17 12:37 CK-MB (CK-2) Rel Index 8.4 (0-4) H 04/23/17 12:37 Troponin T < 0.010 ng/mL (0.00-0.029) 04/23/17 12:37 C-Reactive Protein 5.10 mg/dL (0.00-1.30) H 04/23/17 21:42 NT-Pro-B Natriuret Pep 2918 pg/mL (0-900) H 04/22/17 23:14 Urine Color Yellow (Yellow) 04/23/17 01:10 Urine Turbidity Clear (Clear) 04/23/17 01:10 Urine pH 5.0 (5.0-7.0) 04/23/17 01:10 Ur Specific [place] 1.023 (1.003-1.030) 04/23/17 01:10 Urine Protein 100 mg/dl mg/dL (Negative) 04/23/17 01:10 Urine Glucose (UA) Neg mg/dL (Negative) 04/23/17 01:10 Urine Ketones 20 mg/dL (Negative) 04/23/17 01:10 Urine Blood Neg (Negative) 04/23/17 01:10 Urine Nitrite Neg (Negative) 04/23/17 01:10 Urine Bilirubin Neg (Negative) 04/23/17 01:10 Urine Urobilinogen < 2.0 mg/dL (<2.0) 04/23/17 01:10 Ur Leukocyte Esterase Sm (Negative) 04/23/17 01:10 Urine WBC (Auto) 55.0 /HPF (0.0-6.0) H 04/23/17 01:10 Urine RBC (Auto) 8.0 /HPF (0.0-6.0) 04/23/17 01:10 U Epithel Cells (Auto) 1.0 /HPF (0-13.0) 04/23/17 01:10 Urine Bacteria (Auto) 1+ /HPF (Negative) 04/23/17 01:10 Amorphous Crystals 1+ 04/23/17 01:10 Hyaline Casts 17 /LPF 04/23/17 01:10 Urine Mucus Few /HPF 04/23/17 01:10
--- NOTE | 2017-04-26 07:04 | XRay Report ---
Single view chest: Compared to 04/25/17. History: Followup of respiratory failure. Findings: Normal cardiomediastinal silhouette. Trachea is midline. Evidence of emphysema. No consolidation or pleural effusion. Discoid atelectasis right lung without interval change. Impression: Emphysema. No acute lung changes.
[2017-04-26 07:15] LABS: Hematocrit 44.3 % (30.3-42.9); Mean Corpuscular HGB Conc 34 % (30-34); Mean Corpuscular Hemoglobin 31 pg (28-32); Mean Corpuscular Volume 93 fl (79-97); Platelet Count 238 K/mm3 (140-440); Red Blood Count 4.79 M/mm3 (3.65-5.03); Red Cell Distribution Width 14.8 % (13.2-15.2); White Blood Count 10.5 K/mm3 (4.5-11.0)
[2017-04-26 07:27] LABS: Anion Gap 15 mmol/L; Blood Urea Nitrogen 24 mg/dL (7-17); Calcium 8.9 mg/dL (8.4-10.2); Carbon Dioxide 31 mmol/L (22-30); Chloride 97.8 mmol/L (98-107); Glucose 122 mg/dL (65-100); Potassium 4.2 mmol/L (3.6-5.0); Sodium 140 mmol/L (137-145)
[2017-04-26] MEDS: LOVENOX SUB-Q SCH (09:53)
[2017-04-26] MEDS: LEVAQUIN PO SCH (09:54)
[2017-04-26] MEDS: PEPCID PO SCH ×2 (09:54→21:35)
--- NOTE | 2017-04-26 11:22 | Progress Note ---
Assessment and Plan (1) Acute respiratory failure Current Visit: Yes Status: Acute Qualifiers: Respiratory failure complication: hypoxia and hypercapnia Qualified Code(s) : J96.01 - Acute respiratory failure with hypoxia; J96.02 - Acute respiratory failure with hypercapnia Plan to address problem: - acute on Chronic really - continue aspiration precautions - continue LANETTE, LABA - continue systemic steroids - wean FiO2 for O2 sats > 90-92% - use BIPA prn (2) COPD exacerbation Current Visit: Yes Status: Acute Plan to address problem: - continue empiric Antibiotics and follow cultures - as above otherwise (3) HTN (hypertension) Current Visit: No Status: Acute Qualifiers: Hypertension type: H Plan to address problem: - continue prn hydralazine - schedule oral meds shortly (4) HCV (hepatitis C virus) Current Visit: No Status: Chronic Qualifiers: Viral hepatitis chronicity: V Hepatic coma status: H Plan to address problem: - follow LFT's - no clinical signs of severe disease complications (5) Discharge planning issues Current Visit: Yes Status: Acute Plan to address problem: - home at discharge hopefully ...transfer to floor ok Subjective Date of service: 04/26/17 Principal diagnosis: Acute on Chronic Hypercapnic Hypoxemic Resp Failure Interval history: Seen and examined at bedside; 24 hour events reviewed; nursing and respiratory care staff consulted; no adverse overnight events reported to me; resting peacefully in bed; denies acute chest pains or increased SOB; refused BIPAP; extubated yesterday and doing well Objective Vital Signs - 12hr 04/26/17 04/26/17 04/26/17 00:00 01:00 02:00 Temperature 98.0 F Pulse Rate 104 H 110 H 99 H Pulse Rate [ 110 H Apical] Respiratory 20 18 15 Rate Blood Pressure 142/78 167/91 167/91 O2 Sat by Pulse 97 91 93 Oximetry 04/26/17 04/26/17 04/26/17 03:00 04:00 05:00 Temperature 98.1 F Pulse Rate 96 H 106 H 80 Pulse Rate [ 82 Apical] Respiratory 17 15 14 Rate Blood Pressure 140/80 141/107 155/81 O2 Sat by Pulse 91 90 90 Oximetry 04/26/17 04/26/17 04/26/17 06:00 07:00 07:55 Temperature 97.9 F Pulse Rate 75 78 Pulse Rate [ Apical] Respiratory 17 15 Rate Blood Pressure 149/87 158/89 O2 Sat by Pulse 92 93 Oximetry 04/26/17 08:00 Temperature Pulse Rate 78 Pulse Rate [ Apical] Respiratory 19 Rate Blood Pressure 158/89 O2 Sat by Pulse 97 Oximetry Constitutional: no acute distress, alert Eyes: non-icteric ENT: oropharynx moist Neck: supple Effort: mildly labored Ascultation: Bilateral: diminished breath sounds, rhonchi (base), other ( prolonged exp phase) Cardiovascular: regular rate and rhythm Gastrointestinal: normoactive bowel sounds, soft, non-tender, non-distended Integumentary: normal Extremities: no cyanosis, no edema, pink and warm, pulses normal Neurologic: normal mental status, non-focal exam, pupils equal and round, motor strength normal and Psychiatric: mood appropriate, affect normal CBC and BMP: 04/26/17 06:48 04/26/17 06:48 ABG, PT/INR, D-dimer: ABG POC ABG pH 7.293 (7.35-7.45) L 04/25/17 14:19 POC ABG pCO2 71.4 (35-45) H 04/25/17 14:19 POC ABG pO2 118 (80-105) H 04/25/17 14:19 POC ABG HCO3 34.5 04/25/17 14:19 POC ABG Total CO2 37 04/25/17 14:19 POC ABG O2 Sat 98 04/25/17 14:19 PT/INR, D-dimer D-Dimer 1379.86 ng/mlDDU (0-234) H 04/22/17 23:13 Abnormal lab findings: Abnormal Labs 04/23/17 04/23/17 04/23/17 06:20 12:37 21:42 Hgb Hct RDW Lymph % (Auto) [place] % (Auto) Lymph # [place] # Seg Neutrophils % Seg Neutrophils # POC ABG pH POC ABG pCO2 POC ABG pO2 Sodium Chloride Carbon Dioxide BUN Creatinine Glucose CK-MB (CK-2) 5.9 H CK-MB (CK-2) Rel Index 7.1 H 8.4 H C-Reactive Protein 5.10 H 04/24/17 04/24/17 04/24/17 05:01 05:37 06:53 Hgb Hct RDW 15.4 H Lymph % (Auto) 7.4 L [place] % (Auto) 10.2 H Lymph # 0.8 L [place] # 1.1 H Seg Neutrophils % 81.7 H Seg Neutrophils # 9.0 H POC ABG pH 7.491 H POC ABG pCO2 45.5 H POC ABG pO2 65 L Sodium 146 H Chloride Carbon Dioxide 32 H BUN 31 H Creatinine Glucose 113 H CK-MB (CK-2) CK-MB (CK-2) Rel Index C-Reactive Protein 04/25/17 04/25/17 04/26/17 03:36 14:19 06:48 Hgb 15.0 H Hct 44.3 H RDW Lymph % (Auto) [place] % (Auto) Lymph # [place] # Seg Neutrophils % Seg Neutrophils # POC ABG pH 7.293 L POC ABG pCO2 58.2 H 71.4 H POC ABG pO2 118 H Sodium Chloride Carbon Dioxide BUN Creatinine Glucose CK-MB (CK-2) CK-MB (CK-2) Rel Index C-Reactive Protein 04/26/17 06:48 Hgb Hct RDW Lymph % (Auto) [place] % (Auto) Lymph # [place] # Seg Neutrophils % Seg Neutrophils # POC ABG pH POC ABG pCO2 POC ABG pO2 Sodium Chloride 97.8 L Carbon Dioxide 31 H BUN 24 H Creatinine 0.4 L Glucose 122 H CK-MB (CK-2) CK-MB (CK-2) Rel Index C-Reactive Protein
[2017-04-26] MEDS: BROVANA NEBU IH SCH ×2 (11:38→19:42)
[2017-04-26 12:49] LABS: Alanine Aminotransferase 16 units/L (7-56); Albumin 3.5 g/dL (3.9-5); Albumin/Globulin Ratio 1.4 %; Alkaline Phosphatase 40 units/L (35-129)
[2017-04-26 12:54] LABS: Bilirubin,Direct < 0.2 mg/dL (0-0.2)
[2017-04-26 14:30] LABS: ISTAT Base Excess 7; ISTAT DEVICE 0; ISTAT PCO2 41.6 (35-45); ISTAT PO2 65 (80-105); ISTAT SO2 94; ISTAT TCO2 32
--- NOTE | 2017-04-26 16:52 | Progress Note ---
Assessment and Plan Assessment and plan: Patient is a 56-year-old woman with a history of COPD, hepatitis C presents to the emergency room for shortness of breath. She was found to be in respiratory distress. Patient had saturation of 77%. She was started on BiPAP, her carbon dioxide increased and she became sedated. Acute respiratory failure with hypoxia, extubated 04/25/17 Patient currently intubated and sedated. No acute respiratory distress noted. Aggressive Nebulizers/Inhalers ABG when necessary Oxygen supplement Supportive care Sepsis secondary UTI Blood cultures collected prior to antibiotic and culture. Follow blood cultures. Initiated empiric treatment IV Levaquin IV fluid hydration Supportive care Hydronephrosis CTA showed an 2.8x1.8cm stone in the left reneal pelvis Urology consulted Acute exacerbation of chronic obstructive pulmonary disease (COPD), Continue on Duoneb every 6 hours Wean IV steroid Solumedrol 125mg every 6 hours Continue on empiric treatment of IV Levaquin. Oxygen as necessary Urinary Tract Infection IV fluid hydration Initiated empiric treatment IV Levaquin Supportive care Hepatitis C Stable follow up with GI as outpatient Elevated D-fabián CTA no evidence of PE VL LE Doppler no evidence of DVT/SVT DVT/Prophylaxis Lovenox Left renal stone: Evaluated By urology, outpatient cystoscopy transfer out of icu, hopefully d/c tomorrow once cleared by Pulm History Interval history: Patient was seen and examined. Follow-up on current diagnosis/respiratory failure,extubated. Overnight uneventful. Patient denies any chest pain, shortness breath, nausea/vomiting or severe headaches. Imaging, nursing note, chart, labs and old chart reviewed. Discussed with patient. Hospitalist Physical - Physical exam Narrative exam: GEN: Intubated NAD, AWAKE, ALERT, ORIENTATED HEENT: NCAT, EOMI, PERRL, OP Clear, E2 to place NECK: supple, no adenopathy, no thyromegaly, no JVD CVS/HEART: RRR, NORMAL S1S2, NO JVD, pulses present bilaterally CHEST/LUNGS: symmetrical chest expansion, good air entry bilaterally GI/Abdomen: soft, NTND, good bowel sounds, no guarding or rebound /Bladder: no suprapubic tenderness, no CVA or paraspinal tenderness EXT/Skin: no c/c/e, no significant edema or obvious rash MSK: FROM x 4 Neuro: CN 2-12 grossly intact, no new focal deficits Psych: calm - Constitutional Vitals: Temp Pulse Resp BP Pulse Ox 98.3 F 103 H 15 146/92 90 04/26/17 15:49 04/26/17 15:00 04/26/17 15:00 04/26/17 15:00 04/26/17 12:00 General appearance: Present: no acute distress, other (intubated and sedated ) Results - Labs CBC & Chem 7: 04/26/17 06:48 04/26/17 06:48 Labs: Laboratory Last Values WBC 10.5 K/mm3 (4.5-11.0) 04/26/17 06:48 RBC 4.79 M/mm3 (3.65-5.03) 04/26/17 06:48 Hgb 15.0 gm/dl (10.1-14.3) H 04/26/17 06:48 Hct 44.3 % (30.3-42.9) H 04/26/17 06:48 MCV 93 fl (79-97) 04/26/17 06:48 MCH 31 pg (28-32) 04/26/17 06:48 MCHC 34 % (30-34) 04/26/17 06:48 RDW 14.8 % (13.2-15.2) 04/26/17 06:48 Plt Count 238 K/mm3 (140-440) 04/26/17 06:48 Lymph % (Auto) 7.4 % (13.4-35.0) L 04/24/17 05:01 [place] % (Auto) 10.2 % (0.0-7.3) H 04/24/17 05:01 Eos % (Auto) 0.1 % (0.0-4.3) 04/24/17 05:01 Baso % (Auto) 0.6 % (0.0-1.8) 04/24/17 05:01 Lymph # 0.8 K/mm3 (1.2-5.4) L 04/24/17 05:01 [place] # 1.1 K/mm3 (0.0-0.8) H 04/24/17 05:01 Eos # 0.0 K/mm3 (0.0-0.4) 04/24/17 05:01 Baso # 0.1 K/mm3 (0.0-0.1) 04/24/17 05:01 Seg Neutrophils % 81.7 % (40.0-70.0) H 04/24/17 05:01 Seg Neutrophils # 9.0 K/mm3 (1.8-7.7) H 04/24/17 05:01 D-Dimer 1379.86 ng/mlDDU (0-234) H 04/22/17 23:13 POC ABG pH 7.480 (7.35-7.45) H 04/26/17 13:07 POC ABG pCO2 41.6 (35-45) 04/26/17 13:07 POC ABG pO2 65 (80-105) L 04/26/17 13:07 POC ABG HCO3 31.0 04/26/17 13:07 POC ABG Total CO2 32 04/26/17 13:07 POC ABG O2 Sat 94 04/26/17 13:07 POC ABG Base Excess 7 04/26/17 13:07 FiO2 21 % 04/26/17 13:07 Sodium 140 mmol/L (137-145) 04/26/17 06:48 Potassium 4.2 mmol/L (3.6-5.0) 04/26/17 06:48 Chloride 97.8 mmol/L (98-107) L 04/26/17 06:48 Carbon Dioxide 31 mmol/L (22-30) H 04/26/17 06:48 Anion Gap 15 mmol/L 04/26/17 06:48 BUN 24 mg/dL (7-17) H 04/26/17 06:48 Creatinine 0.4 mg/dL (0.7-1.2) L 04/26/17 06:48 Estimated GFR > 60 ml/min 04/26/17 06:48 BUN/Creatinine Ratio 60.00 % 04/26/17 06:48 Glucose 122 mg/dL (65-100) H 04/26/17 06:48 Lactic Acid 1.40 mmol/L (0.7-2.0) 04/23/17 21:42 Calcium 8.9 mg/dL (8.4-10.2) 04/26/17 06:48 Phosphorus 3.60 mg/dL (2.5-4.5) 04/23/17 21:42 Magnesium 1.90 mg/dL (1.7-2.3) 04/22/17 23:13 Total Bilirubin 0.40 mg/dL (0.1-1.2) 04/26/17 11:48 Direct Bilirubin < 0.2 mg/dL (0-0.2) 04/26/17 11:48 AST 16 units/L (5-40) 04/26/17 11:48 ALT 16 units/L (7-56) 04/26/17 11:48 Alkaline Phosphatase 40 units/L (35-129) 04/26/17 11:48 Total Creatine Kinase 46 units/L (30-135) 04/23/17 12:37 CK-MB (CK-2) 3.9 ng/mL (0.0-4.0) 04/23/17 12:37 CK-MB (CK-2) Rel Index 8.4 (0-4) H 04/23/17 12:37 Troponin T < 0.010 ng/mL (0.00-0.029) 04/23/17 12:37 C-Reactive Protein 5.10 mg/dL (0.00-1.30) H 04/23/17 21:42 NT-Pro-B Natriuret Pep 2918 pg/mL (0-900) H 04/22/17 23:14 Total Protein 6.0 g/dL (6.3-8.2) L 04/26/17 11:48 Albumin 3.5 g/dL (3.9-5) L 04/26/17 11:48 Albumin/Globulin Ratio 1.4 % 04/26/17 11:48 Urine Color Yellow (Yellow) 04/23/17 01:10 Urine Turbidity Clear (Clear) 04/23/17 01:10 Urine pH 5.0 (5.0-7.0) 04/23/17 01:10 Ur Specific [place] 1.023 (1.003-1.030) 04/23/17 01:10 Urine Protein 100 mg/dl mg/dL (Negative) 04/23/17 01:10 Urine Glucose (UA) Neg mg/dL (Negative) 04/23/17 01:10 Urine Ketones 20 mg/dL (Negative) 04/23/17 01:10 Urine Blood Neg (Negative) 04/23/17 01:10 Urine Nitrite Neg (Negative) 04/23/17 01:10 Urine Bilirubin Neg (Negative) 04/23/17 01:10 Urine Urobilinogen < 2.0 mg/dL (<2.0) 04/23/17 01:10 Ur Leukocyte Esterase Sm (Negative) 04/23/17 01:10 Urine WBC (Auto) 55.0 /HPF (0.0-6.0) H 04/23/17 01:10 Urine RBC (Auto) 8.0 /HPF (0.0-6.0) 04/23/17 01:10 U Epithel Cells (Auto) 1.0 /HPF (0-13.0) 04/23/17 01:10 Urine Bacteria (Auto) 1+ /HPF (Negative) 04/23/17 01:10 Amorphous Crystals 1+ 04/23/17 01:10 Hyaline Casts 17 /LPF 04/23/17 01:10 Urine Mucus Few /HPF 04/23/17 01:10
[2017-04-27] MEDS: BROVANA NEBU IH SCH (08:35)
[2017-04-27] MEDS: LOVENOX SUB-Q SCH (09:12)
[2017-04-27] MEDS: PEPCID PO SCH (09:12)
[2017-04-27] MEDS: LEVAQUIN PO SCH (09:12)
--- NOTE | 2017-04-27 11:08 | Progress Note ---
Assessment and Plan (1) Acute respiratory failure Current Visit: Yes Status: Acute Qualifiers: Respiratory failure complication: hypoxia and hypercapnia Qualified Code(s) : J96.01 - Acute respiratory failure with hypoxia; J96.02 - Acute respiratory failure with hypercapnia Plan to address problem: - acute on Chronic really - continue aspiration precautions / address VAP bundle daily - continue LANETTE, LABA - continue systemic steroids - wean FiO2 for O2 sats > 90-92% - will benefit from pulmonary rehab at discharge (2) COPD exacerbation Current Visit: Yes Status: Acute Plan to address problem: - continue empiric Antibiotics and follow cultures - as above otherwise (3) HTN (hypertension) Current Visit: No Status: Acute Qualifiers: Hypertension type: H Plan to address problem: - continue prn hydralazine - schedule oral meds shortly (4) HCV (hepatitis C virus) Current Visit: No Status: Chronic Qualifiers: Viral hepatitis chronicity: V Hepatic coma status: H Plan to address problem: - reviewed LFT's - no clinical signs of severe disease complications (5) Discharge planning issues Current Visit: Yes Status: Acute Plan to address problem: - home at discharge hopefully Subjective Date of service: 04/27/17 Principal diagnosis: Acute on Chronic Hypercapnic Hypoxemic Resp Failure Interval history: Seen and examined at bedside; 24 hour events reviewed; nursing and respiratory care staff consulted; no adverse overnight events reported to me; looks and feels better; remains hypoxemic but close to baseline; denies acute chest pains or increased SOB Objective Vital Signs - 12hr 04/27/17 04/27/17 04/27/17 00:00 04:30 08:35 Temperature 98.6 F 98.1 F Pulse Rate 88 93 H Pulse Rate [ 89 Anterior Bilateral Throughout] Respiratory 20 22 Rate Respiratory 18 Rate [Anterior Bilateral Throughout] Blood Pressure 150/82 160/90 [Left] O2 Sat by Pulse 93 93 96 Oximetry 04/27/17 08:45 Temperature Pulse Rate Pulse Rate [ 92 H Anterior Bilateral Throughout] Respiratory Rate Respiratory 20 Rate [Anterior Bilateral Throughout] Blood Pressure [Left] O2 Sat by Pulse Oximetry Constitutional: no acute distress, alert Eyes: non-icteric ENT: oropharynx moist Neck: supple Effort: mildly labored Ascultation: Bilateral: clear, diminished breath sounds, other (prolonged exp phase) Cardiovascular: regular rate and rhythm Gastrointestinal: normoactive bowel sounds, soft, non-tender, non-distended Integumentary: normal Extremities: no cyanosis, no edema, pink and warm, pulses normal Neurologic: normal mental status, non-focal exam, pupils equal and round, motor strength normal and Psychiatric: mood appropriate, affect normal CBC and BMP: 04/26/17 06:48 04/26/17 06:48 ABG, PT/INR, D-dimer: ABG POC ABG pH 7.480 (7.35-7.45) H 04/26/17 13:07 POC ABG pCO2 41.6 (35-45) 04/26/17 13:07 POC ABG pO2 65 (80-105) L 04/26/17 13:07 POC ABG HCO3 31.0 04/26/17 13:07 POC ABG Total CO2 32 04/26/17 13:07 POC ABG O2 Sat 94 04/26/17 13:07 PT/INR, D-dimer D-Dimer 1379.86 ng/mlDDU (0-234) H 04/22/17 23:13 Abnormal lab findings: Abnormal Labs 04/23/17 04/23/17 04/23/17 06:20 12:37 21:42 Hgb Hct RDW Lymph % (Auto) [place] % (Auto) Lymph # [place] # Seg Neutrophils % Seg Neutrophils # POC ABG pH POC ABG pCO2 POC ABG pO2 Sodium Chloride Carbon Dioxide BUN Creatinine Glucose CK-MB (CK-2) 5.9 H CK-MB (CK-2) Rel Index 7.1 H 8.4 H C-Reactive Protein 5.10 H Total Protein Albumin 04/24/17 04/24/17 04/24/17 05:01 05:37 06:53 Hgb Hct RDW 15.4 H Lymph % (Auto) 7.4 L [place] % (Auto) 10.2 H Lymph # 0.8 L [place] # 1.1 H Seg Neutrophils % 81.7 H Seg Neutrophils # 9.0 H POC ABG pH 7.491 H POC ABG pCO2 45.5 H POC ABG pO2 65 L Sodium 146 H Chloride Carbon Dioxide 32 H BUN 31 H Creatinine Glucose 113 H CK-MB (CK-2) CK-MB (CK-2) Rel Index C-Reactive Protein Total Protein Albumin 04/25/17 04/25/17 04/26/17 03:36 14:19 06:48 Hgb 15.0 H Hct 44.3 H RDW Lymph % (Auto) [place] % (Auto) Lymph # [place] # Seg Neutrophils % Seg Neutrophils # POC ABG pH 7.293 L POC ABG pCO2 58.2 H 71.4 H POC ABG pO2 118 H Sodium Chloride Carbon Dioxide BUN Creatinine Glucose CK-MB (CK-2) CK-MB (CK-2) Rel Index C-Reactive Protein Total Protein Albumin 04/26/17 04/26/17 04/26/17 06:48 11:48 13:07 Hgb Hct RDW Lymph % (Auto) [place] % (Auto) Lymph # [place] # Seg Neutrophils % Seg Neutrophils # POC ABG pH 7.480 H POC ABG pCO2 POC ABG pO2 65 L Sodium Chloride 97.8 L Carbon Dioxide 31 H BUN 24 H Creatinine 0.4 L Glucose 122 H CK-MB (CK-2) CK-MB (CK-2) Rel Index C-Reactive Protein Total Protein 6.0 L Albumin 3.5 L
--- NOTE | 2017-04-27 13:01 | Discharge Summary ---
Providers - Providers Date of Admission: 04/23/17 06:01 Date of discharge: 04/27/17 Attending physician: BONILLA FARLEY 04/23/17 20:42 Consult to Dietitian/Nutrition [CONS] Routine Physician Instructions: Reason For Exam: Reason for Consult: Write/Manage Tube Feeding 04/24/17 11:04 Consult to Physician [CONS] Routine Consulting Provider: SANDY FRASER Reason For Exam: LEFT RENAL STONE. HYDRONEPHROSIS Place consult to:: Dr Longoria Notified:: yes Was contact made?: Yes Comment:: Pt seen by Dr Longoria at 17:40 04/24/17 12:39 Consult to Physician [CONS] Routine Consulting Provider: ANA LONGORIA Reason For Exam: hydronephrosis Place consult to:: yes Notified:: yes Phone number called:: yes Comment:: Pt seen by Dr Longoria Primary care physician: [employer] Hospitalization Condition: Stable Hospital course: Patient is a 56-year-old woman with a history of COPD, hepatitis C presents to the emergency room for shortness of breath. She was found to be in respiratory distress. Patient had saturation of 77%. She was started on BiPAP, her carbon dioxide increased and she was intubated upon admission. Acute respiratory failure with hypoxia, extubated 04/25/17 Patient currently intubated and sedated. No acute respiratory distress noted. Aggressive Nebulizers/Inhalers ABG when necessary Oxygen supplement Supportive care Sepsis secondary UTI Blood cultures collected prior to antibiotic and culture. Follow blood cultures. Initiated empiric treatment IV Levaquin IV fluid hydration Supportive care Hydronephrosis CTA showed an 2.8x1.8cm stone in the left reneal pelvis Urology consulted Acute exacerbation of chronic obstructive pulmonary disease (COPD), Continue on Duoneb every 6 hours Wean IV steroid Solumedrol 125mg every 6 hours Continue on empiric treatment of IV Levaquin. Oxygen as necessary Urinary Tract Infection IV fluid hydration Initiated empiric treatment IV Levaquin Supportive care Hepatitis C Stable follow up with GI as outpatient Elevated D-fabián CTA no evidence of PE VL LE Doppler no evidence of DVT/SVT DVT/Prophylaxis Lovenox Left renal stone: Evaluated By urology, outpatient cystoscopy Disposition: TO HOME OR SELFCARE Time spent for discharge: 34 minutes Core Measure Documentation - Palliative Care Palliative Care/ Comfort Measures: Not Applicable - Core Measures Any of the following diagnoses?: none - VTE Discharge Requirements Deep Vein Thrombosis/Pulmonary Embolism Present on Admission: No Has pt received <5 days of overlap therapy or INR<2.0: No Anticoagulant overlap therapy prescribed at discharge: No Contraindication No Overlap Therapy order at DC: Not Indicated Exam - Physical Exam Narrative exam: GEN: NAD, AWAKE, ALERT, ORIENTATED x3 HEENT: NCAT, EOMI, PERRL, OP Clear, NECK: supple, no adenopathy, no thyromegaly, no JVD CVS/HEART: RRR, NORMAL S1S2, NO JVD, pulses present bilaterally CHEST/LUNGS: symmetrical chest expansion, good air entry bilaterally GI/Abdomen: soft, NTND, good bowel sounds, no guarding or rebound /Bladder: no suprapubic tenderness, no CVA or paraspinal tenderness EXT/Skin: no c/c/e, no significant edema or obvious rash MSK: FROM x 4 Neuro: CN 2-12 grossly intact, no new focal deficits Psych: calm - Constitutional Vitals: Temp Pulse Resp BP Pulse Ox 98.1 F 92 H 20 160/90 96 04/27/17 04:30 04/27/17 08:45 04/27/17 08:45 04/27/17 04:30 04/27/17 08:35 Plan Activity: other (no strenous activity until cleared by PCP) Diet: regular Special Instructions: smoking cessation Durable Medical Equipment Needed Upon Discharge: Oxygen Follow up with: PRIMARY CARE, [Primary Care Provider] - 3-5 Days Prescriptions: Arformoterol Nebu [Brovana Nebu] 15 mcg IH Q12HRT #30 day Azithromycin [Zithromax Z-MACIEL] 1 dose PO DAILY #1 pack Famotidine [Pepcid] 20 mg PO BID #60 tablet methylPREDNISolone [Medrol Dose Maciel] 1 dose PO DAILY #1 pack
[2017-04-27 13:19] VITALS: BP 166/100
== END 2017-04-27 16:00 | disposition home or self-care (01) | DRG 871 ==
LOC: ED 23:07 → CC1 04-23 06:01 → 3A 04-26 16:41
PROVIDERS: ADMIT Internal Medicine; ATTEND Internal Medicine
PROC: 5A09357 Assistance with Respiratory Ventilation, Less than 24 Consecutive Hours, Continuous Positive Airway Pressure (ICD-10-PCS; 2017-04-22)
PROC: 4A033R1 Measurement of Arterial Saturation, Peripheral, Percutaneous Approach (ICD-10-PCS; principal; 2017-04-23)
PROC: 5A1945Z Respiratory Ventilation, 24-96 Consecutive Hours (ICD-10-PCS; 2017-04-23)
PROC: 0BH17EZ Insertion of Endotracheal Airway into Trachea, Via Natural or Artificial Opening (ICD-10-PCS; 2017-04-23)
DX: A41.9 Sepsis, unspecified organism (principal); J96.01 Acute respiratory failure with hypoxia; J44.1 Chronic obstructive pulmonary disease with (acute) exacerbation; N39.0 Urinary tract infection, site not specified; K21.9 Gastro-esophageal reflux disease without esophagitis; B19.20 Unspecified viral hepatitis C without hepatic coma; Z82.49 Family history of ischemic heart disease and other diseases of the circulatory system; N13.30 Unspecified hydronephrosis
CPT/HCPCS: 36415; 36600; 71010; 71275; 74000; 80048; 80074; 81001; 82140; 82550; 82553; 82803; 83735; 83880; 84100; 84484; 85025; 85027; 85379; 86140; 87040; 87070; 87086; 87205; 93005; 93010; 93970; 94002; 94003; 94640; 94760; 96365; 96366; 96367; 96372; 96375; J0360; J0696; J1650; J1956; J2250; J2920; J2930; J3010; J3475; J7030; J7040; Q9967